=== PATIENT | female | born 1995 | race Caucasian/White ===

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

== ENCOUNTER 2017-11-12 23:05 | Emergency (ER) | payer BC ==
[2017-11-12 23:20] VITALS: BP 127/69; PULSE 80; RESP 20; TEMP 98.1
--- NOTE | 2017-11-13 00:02 | ED ---
Head Injury HPI - General Chief complaint: Head Injury Stated complaint: Poss concussion Time Seen by Provider: 11/12/17 23:21 Source: patient, RN notes reviewed, old records reviewed Mode of arrival: ambulatory Limitations: no limitations - History of Present Illness Initial comments: This patient is a 22-year-old female chief complaint of a head injury. She reports that she hit her head on the mantle when she was walking and slipped. She reports she has a small bruise over the anterior aspect of her for head. Patient states that she did not lose consciousness. She didn't have any other symptoms at this time.Your porch is a mild headache at this time. She rates her pain 4 out of 10. She also states that she spelt somewhat dizzy afterward. No vomiitng. - Related Data Home Medications Medication Instructions Recorded Confirmed Unknown Control 1 tab PO DAILY 11/12/17 11/12/17 Allergies/Adverse reactions: Allergies Allergy/AdvReac Type Severity Reaction Status Date / Time ampicillin Allergy Anaphylaxis Verified 11/12/17 23:31 Penicillins Allergy Anaphylaxis Verified 11/12/17 23:31 Review of Systems ROS Statement: Those systems with pertinent positive or pertinent negative responses have been documented in the HPI. ROS Other: All systems not noted in ROS Statement are negative. Past Medical History Past Medical History: No Reported History History of Any Multi-Drug Resistant Organisms: None Reported Past Surgical History: No Surgical Hx Reported Past Psychological History: Anxiety Smoking Status: Never smoker Past Alcohol Use History: None Reported Past Drug Use History: None Reported General Exam - General Exam Comments Initial Comments: This patient is a well appearing 22 year old female, no distress. Limitations: no limitations General appearance: alert, in no apparent distress Head exam: Present: atraumatic, normocephalic, normal inspection, other (small contusion over left anterior forehead. ) Eye exam: Present: normal appearance, PERRL, EOMI. Absent: scleral icterus, conjunctival injection, periorbital swelling ENT exam: Present: normal exam, mucous membranes moist Neck exam: Present: normal inspection. Absent: tenderness, meningismus, lymphadenopathy Respiratory exam: Present: normal lung sounds bilaterally. Absent: respiratory distress, wheezes, rales, rhonchi, stridor Cardiovascular Exam: Present: regular rate, normal rhythm, normal heart sounds. Absent: systolic murmur, diastolic murmur, rubs, gallop, clicks GI/Abdominal exam: Present: soft, normal bowel sounds. Absent: distended, tenderness, guarding, rebound, rigid Extremities exam: Present: normal inspection, full ROM, normal capillary refill. Absent: tenderness, pedal edema, joint swelling, calf tenderness Back exam: Present: normal inspection Neurological exam: Present: alert, oriented X3, CN II-XII intact Psychiatric exam: Present: normal affect, normal mood Skin exam: Present: warm, dry, intact, normal color. Absent: rash Course Vital Signs 11/12/17 23:16 Temperature 98.1 F Pulse Rate 80 Respiratory 20 Rate Blood Pressure 127/69 O2 Sat by Pulse 100 Oximetry Medical Decision Making - Medical Decision Making This patient is a 22-year-old female chief complaint of a head injury. She reports that she hit her head on the mantle when she was walking and slipped. She reports she has a small bruise over the anterior aspect of her for head. Patient states that she did not lose consciousness. She didn't have any other symptoms at this time.Your porch is a mild headache at this time. She rates her pain 4 out of 10. Patient has small contusion. No neurological findings. The accident happened a few hours ago. Discussed risk and benefit of CT at this time. Discussed that her mechanism of injury is not concerning for traumatic head injury. Melecio agrees to avoid CT at this time. Discussed that she should be monitored after any head injury and return parameters discussed. Disposition Clinical Impression: Head injury Disposition: HOME SELF-CARE Condition: Good Instructions: Concussion (ED) Additional Instructions: Patient is to take motrin and Tylenol for pain. Patient should not be straining computer screens are being any loud places. Patient should follow-up with primary care provider. Needs to be monitored for the next day. Return to emergency department if any alarming signs or symptoms occur. Referrals: Horace Freitas III, MD [Primary Care Provider] - 1-2 days Time of Disposition: 00:04
== END 2017-11-13 00:26 | disposition home or self-care (01) ==
LOC: EC 23:05
DX: S09.90XA Unspecified injury of head, initial encounter (principal); R42 Dizziness and giddiness; Z79.3 Long term (current) use of hormonal contraceptives; Z88.0 Allergy status to penicillin; Z88.1 Allergy status to other antibiotic agents; W01.198A Fall on same level from slipping, tripping and stumbling with subsequent striking against other object, initial encounter; Y93.01 Activity, walking, marching and hiking; Y92.009 Unspecified place in unspecified non-institutional (private) residence as the place of occurrence of the external cause
CPT/HCPCS: 99283

== ENCOUNTER → 2017-11-28 | Outpatient (CLI) | payer BC ==
--- NOTE | 2017-11-28 15:42 | US ---
EXAMINATION TYPE: US pelvis complete transvag DATE OF EXAM: 11/28/2017 COMPARISON: NONE CLINICAL HISTORY: R10.2 Pelvic And Perineal Pain. TECHNIQUE: . Transabdominal sonographic images of the pelvis were acquired. Transvaginal sonographi c images were medically necessary to better assess the following anatomy: Ovaries and uterus Date of LMP: Unsure EXAM MEASUREMENTS: Uterus: 6.5 x 2.5 x 3.5 cm Endometrial Stripe: 0.7 cm Right Ovary: 3.0 x 2.1 x 1.8 cm Left Ovary: 2.2 x 2.0 x 1.5 cm 1. Uterus: Anteverted wnl 2. Endometrium: wnl 3. Right Ovary: Cystic area visualized measuring 1.4 x 1.3 x 1.3, probable follicle 4. Left Ovary: wnl Spectral, color and waveform doppler imaging shows good arterial and venous flow within the ovaries ; there is no evidence for ovarian torsion. 5. Bilateral Adnexa: wnl 6. Posterior cul-de-sac: wnl IMPRESSION: Right ovarian follicular cyst.
== END | disposition home or self-care (01) ==
LOC: RADUSWWP 14:52
PROVIDERS: ATTEND Family Medicine
DX: N83.201 Unspecified ovarian cyst, right side (principal)
CPT/HCPCS: 76830; 76856; 93975

== ENCOUNTER 2018-06-14 17:47 | Inpatient (IN) | payer BC ==
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
[2018-06-14 21:56] LABS: Appearance,Urine Cloudy (Clear); Bilirubin,Urine Negative (Negative); Blood,Urine Small (Negative); Color,Urine Yellow; Glucose,Urine (UA) Negative (Negative); Ketones,Urine Negative (Negative); Leukocyte Esterase,Urine Trace (Negative); Mucus,Urine Rare /hpf; Nitrite,Urine Negative (Negative); Protein,Urine Negative (Negative); RBC,Urine 10 /hpf (0-5); Specific Gravity,Urine 1.013 (1.001-1.035); Squamous Epithelial Cell,Urine 14 /hpf (0-4); Urobilinogen,Urine <2.0 mg/dL (<2.0); WBC,Urine 2 /hpf (0-5)
[2018-06-14 22:01] LABS: Amphetamine Screen,Urine Not Detected (NotDetected); Barbiturate Screen,Urine Not Detected (NotDetected); Benzodiazepines Screen,Urine Not Detected (NotDetected); Cocaine Screen,Urine Not Detected (NotDetected); Methadone Screen, Urine Not Detected (NotDetected); Opiate Screen,Urine Not Detected (NotDetected); Oxycodone Screen, Urine Not Detected (NotDetected); Phencyclidine Screen,Urine Not Detected (NotDetected); Tricyclic Antidepressant,Urine Not Detected (NotDetected); Urn Cannabinoid Scrn Not Detected (NotDetected)
[2018-06-14 22:48] LABS: Basophils # (A) 0.1 k/uL (0-0.2); Basophils % (A) 1 %; Eosinophils # (A) 0.1 k/uL (0-0.7); Eosinophils % (A) 1 %; HCT 38.6 % (34.0-46.0); HGB 12.6 gm/dL (11.4-16.0); Lymphocytes # (A) 1.9 k/uL (1.0-4.8); Lymphocytes % (A) 16 %; MCH 32.2 pg (25.0-35.0); MCHC 32.6 g/dL (31.0-37.0); MCV 98.9 fL (80.0-100.0); Mean Platelet Volume 6.9; Monocytes # (A) 0.8 k/uL (0-1.0); Monocytes % (A) 7 %; Neutrophils # (A) 8.2 k/uL (1.3-7.7); Neutrophils % (A) 73 %; Platelet Count 218 k/uL (150-450); RBC 3.91 m/uL (3.80-5.40); RDW 12.2 % (11.5-15.5); WBC 11.3 k/uL (3.8-10.6)
[2018-06-14 23:02] LABS: ALT 30 U/L (9-52); AST 22 U/L (14-36); Albumin 3.8 g/dL (3.5-5.0); Alkaline Phosphatase 73 U/L (38-126); Anion Gap 7 mmol/L; Blood Urea Nitrogen 13 mg/dL (7-17); Calcium 9.2 mg/dL (8.4-10.2); Carbon Dioxide 26 mmol/L (22-30); Chloride 105 mmol/L (98-107); Glucose 82 mg/dL (74-99); Potassium 4.4 mmol/L (3.5-5.1); Sodium 138 mmol/L (137-145); Total Bilirubin 0.4 mg/dL (0.2-1.3); Total Protein 6.7 g/dL (6.3-8.2)
[2018-06-15] MEDS ORDERED: MAG HYDROX/AL HYDROX/SIMETH 30 ML CUP PO PRN (16:41)
[2018-06-15] MEDS ORDERED: ACETAMINOPHEN TAB 325 MG TAB PO PRN (16:41)
[2018-06-15] MEDS ORDERED: LORazepam 1 MG TAB PO PRN (16:41)
[2018-06-15] MEDS ORDERED: MAGNESIUM HYDROXIDE 2,400 MG/10 ML CUP PO PRN (16:41)
[2018-06-15] MEDS ORDERED: ZIPRASIDONE 20 MG VIAL IM PRN (16:41)
[2018-06-15 17:15] VITALS: BMI 28.0
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
[2018-06-16 15:23] LABS: Hemoglobin A1C 4.1 % (4.0-6.0)
[2018-06-16 16:06] LABS: Basophils % (A) 0 %; Eosinophils # (A) 0.1 k/uL (0-0.7); Eosinophils % (A) 1 %; HCT 40.7 % (34.0-46.0); HGB 13.3 gm/dL (11.4-16.0); Lymphocytes # (A) 1.3 k/uL (1.0-4.8); Lymphocytes % (A) 16 %; MCH 32.2 pg (25.0-35.0); MCHC 32.8 g/dL (31.0-37.0); MCV 98.3 fL (80.0-100.0); Mean Platelet Volume 6.8; Monocytes # (A) 0.6 k/uL (0-1.0); Monocytes % (A) 7 %; Neutrophils # (A) 6.4 k/uL (1.3-7.7); Neutrophils % (A) 74 %; Platelet Count 257 k/uL (150-450); RBC 4.14 m/uL (3.80-5.40); WBC 8.6 k/uL (3.8-10.6)
[2018-06-16 16:44] LABS: Appearance,Urine Cloudy (Clear); Bacteria,Urine Rare /hpf; Bilirubin,Urine Negative (Negative); Blood,Urine Small (Negative); Color,Urine Yellow; Glucose,Urine (UA) Negative (Negative); Ketones,Urine Negative (Negative); Leukocyte Esterase,Urine Small (Negative); Mucus,Urine Rare /hpf; Nitrite,Urine Negative (Negative); Protein,Urine Negative (Negative); RBC,Urine 9 /hpf (0-5); Specific Gravity,Urine 1.017 (1.001-1.035); Squamous Epithelial Cell,Urine 10 /hpf (0-4); Urobilinogen,Urine <2.0 mg/dL (<2.0); WBC,Urine 7 /hpf (0-5)
[2018-06-17 04:13] VITALS: BP 95/52; PULSE 70; RESP 12; TEMP 98.2
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
== END 2018-06-18 12:56 | disposition home or self-care (01) | DRG 885 ==
LOC: EC 17:47 → 3MHU 06-15 16:39
PROVIDERS: ADMIT Psychiatry & Neurology Psychiatry; ATTEND Psychiatry & Neurology Psychiatry
DX: F33.9 Major depressive disorder, recurrent, unspecified (principal); R45.851 Suicidal ideations; F41.9 Anxiety disorder, unspecified; D72.829 Elevated white blood cell count, unspecified; Z88.1 Allergy status to other antibiotic agents; Z88.0 Allergy status to penicillin
CPT/HCPCS: 36415; 80053; 80061; 80306; 81001; 81025; 83036; 84443; 84702; 84703; 85025; 99285

== ENCOUNTER 2019-03-09 09:54 | Inpatient (IN) | payer BC ==
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
[2019-03-09 10:57] LABS: Appearance,Urine Cloudy (Clear); Bacteria,Urine Rare /hpf; Bilirubin,Urine Negative (Negative); Blood,Urine Small (Negative); Calcium Oxalate Crystals,Urine Few /hpf; Color,Urine Yellow; Glucose,Urine (UA) Negative (Negative); Hyaline Casts,Urine 15 /lpf (0-2); Ketones,Urine Negative (Negative); Leukocyte Esterase,Urine Large (Negative); Mucus,Urine Many /hpf; Nitrite,Urine Negative (Negative); Protein,Urine Trace (Negative); RBC,Urine 7 /hpf (0-5); Specific Gravity,Urine 1.025 (1.001-1.035); Squamous Epithelial Cell,Urine 4 /hpf (0-4); Urobilinogen,Urine <2.0 mg/dL (<2.0); WBC,Urine 118 /hpf (0-5)
[2019-03-09] MEDS ORDERED: CEPHALEXIN 500 MG CAP PO STA (11:02)
[2019-03-09 11:05] LABS: ALT 20 U/L (9-52); AST 23 U/L (14-36); African American GFR (CKD) >90 (>60 ml/min/1.73 sqM); Albumin 4.2 g/dL (3.5-5.0); Alkaline Phosphatase 94 U/L (38-126); Anion Gap 8 mmol/L; Blood Urea Nitrogen 16 mg/dL (7-17); Calcium 8.9 mg/dL (8.4-10.2); Carbon Dioxide 25 mmol/L (22-30); Chloride 106 mmol/L (98-107); Glucose 86 mg/dL (74-99); Potassium 4.1 mmol/L (3.5-5.1); Sodium 139 mmol/L (137-145); Total Bilirubin 0.5 mg/dL (0.2-1.3)
[2019-03-09 11:06] LABS: Basophils % (A) 0 %; Eosinophils # (A) 0.1 k/uL (0-0.7); Eosinophils % (A) 1 %; HCT 38.6 % (34.0-46.0); HGB 12.9 gm/dL (11.4-16.0); Lymphocytes # (A) 0.8 k/uL (1.0-4.8); Lymphocytes % (A) 6 %; MCH 31.3 pg (25.0-35.0); MCHC 33.3 g/dL (31.0-37.0); MCV 94.1 fL (80.0-100.0); Mean Platelet Volume 6.8; Monocytes # (A) 0.6 k/uL (0-1.0); Monocytes % (A) 5 %; Neutrophils # (A) 10.8 k/uL (1.3-7.7); Neutrophils % (A) 86 %; Platelet Count 234 k/uL (150-450); RBC 4.11 m/uL (3.80-5.40); RDW 12.4 % (11.5-15.5); WBC 12.5 k/uL (3.8-10.6)
[2019-03-09 11:07] LABS: Amphetamine Screen,Urine Detected (NotDetected); Barbiturate Screen,Urine Not Detected (NotDetected); Benzodiazepines Screen,Urine Not Detected (NotDetected); Cocaine Screen,Urine Not Detected (NotDetected); Methadone Screen, Urine Not Detected (NotDetected); Opiate Screen,Urine Not Detected (NotDetected); Oxycodone Screen, Urine Not Detected (NotDetected); Phencyclidine Screen,Urine Not Detected (NotDetected); Tricyclic Antidepressant,Urine Not Detected (NotDetected); Urn Cannabinoid Scrn Not Detected (NotDetected)
[2019-03-09] MEDS ORDERED: ZIPRASIDONE 20 MG VIAL IM PRN (15:20)
[2019-03-09] MEDS ORDERED: MAG HYDROX/AL HYDROX/SIMETH 30 ML CUP PO PRN (15:20)
[2019-03-09] MEDS ORDERED: LORazepam 1 MG TAB PO PRN (15:20)
[2019-03-09] MEDS ORDERED: MAGNESIUM HYDROXIDE 2,400 MG/10 ML CUP PO PRN (15:20)
[2019-03-09] MEDS ORDERED: ACETAMINOPHEN TAB 325 MG TAB PO PRN (15:20)
[2019-03-09] MEDS ORDERED: LORazepam 2 MG/ML INJ IM PRN (15:22)
--- NOTE | 2019-03-09 18:24 | P.MDCNMH ---
History of Present Illness H&P Date: 03/09/19 Chief Complaint: Possible suicidal ideation 24-year-old female with PMH of anxiety presents to the ED being brought in by police. Patient is requiring inpatient psychiatric admission for suicidal ideation. [facility] physicians has been consulted for medical management of this patient. As per ED report. LMP was 6-8 weeks ago with patient thinking that she was . Urine test was negative in the ED. Patient was seen and examined. No acute events overnight. Patient appears tired at this time. Patient has no complaints. She denies any headaches, lower extremity edema, nausea, vomiting, fever, cough, chest pain, shortness of breath, palpitations, changes in urination or bowel habits. No changes in appetite or weight. She denies any dizziness, numbness/weakness/tingling of the extremities. Review of Systems Pertinent positives and negatives as discussed in HPI, a complete review of systems was performed and all other systems are negative. Past Medical History Past Medical History: No Reported History History of Any Multi-Drug Resistant Organisms: None Reported Past Surgical History: Tonsillectomy Past Anesthesia/Blood Transfusion Reactions: No Reported Reaction Past Psychological History: Anxiety Smoking Status: Never smoker Past Alcohol Use History: Occasional Past Drug Use History: None Reported - Past Family History Mother Additional Family Medical History / Comment(s): heart condition unsure of what type. Father Family Medical History: CVA/TIA Medications and Allergies Home Medications Medication Instructions Recorded Confirmed Type No Known Home Medications 06/14/18 03/09/19 History Allergies Allergy/AdvReac Type Severity Reaction Status Date / Time ampicillin Allergy Anaphylaxis Verified 03/09/19 16:09 Penicillins Allergy Anaphylaxis Verified 03/09/19 16:09 Physical Exam Vitals: Vital Signs Temp Pulse Pulse Resp BP BP Pulse Ox 03/09/19 15:57 98.0 F 105 H 16 126/84 03/09/19 15:55 98.0 F 105 H 16 126/84 03/09/19 11:47 99 03/09/19 10:21 98.2 F 97 16 113/81 94 L Intake and Output 03/09/19 03/09/19 03/09/19 06:59 14:59 22:59 Other: Weight 63.503 kg General: [non toxic], [no distress], [appears at stated age] Derm: [warm], [dry] Head: [atraumatic], [normocephalic], [symmetric] Eyes: [EOMI], [no lid lag], [anicteric sclera] Mouth: [no lip lesion], [mucus membranes moist] Cardiovascular: [S1S2 reg], [no murmur], [positive posterior tibial pulse bilateral], Lungs: [CTA bilateral], [no rhonchi, no rales] , [no accessory muscle use] Abdominal: [soft], [ nontender to palpation], [no guarding], [no appreciable organomegaly] Ext: [no gross muscle atrophy], [no edema], [no contractures] Neuro: [ CN II-XI grossly intact], [no focal neuro deficits] Psych: [Alert], [oriented], [appropriate affect] Cranial Nerve Examination - Cranial Nerves Cranial Nerve II- Optic: Intact Cranial Nerve III- Oculomotor: Intact Cranial Nerve IV- Trochlear: Intact Cranial Nerve V- Trigeminal: Intact Cranial Nerve - Abducens: Intact Cranial Nerve VII- Facial: Intact Cranial Nerve VIII- Auditory: Intact Cranial Nerve IX- Glossopharyngeal: Intact Cranial Nerve X- Vagus: Intact Cranial Nerve XI- Accessory: Intact Cranial Nerve XII- Hypoglossal: Intact Results CBC & Chem 7: 03/09/19 10:38 03/09/19 10:38 Labs: Abnormal Lab Results - Last 24 Hours (Table) 03/09/19 03/09/19 Range/Units 10:38 10:38 WBC 12.5 H (3.8-10.6) k/uL Neutrophils # 10.8 H (1.3-7.7) k/uL Lymphocytes # 0.8 L (1.0-4.8) k/uL Urine Appearance Cloudy H (Clear) Urine Protein Trace H (Negative) Urine Blood Small H (Negative) Ur Leukocyte Esterase Large H (Negative) Urine RBC 7 H (0-5) /hpf Urine WBC 118 H (0-5) /hpf Calcium Oxalate Crystal Few H (None) /hpf Urine Bacteria Rare H (None) /hpf Hyaline Casts 15 H (0-2) /lpf Urine Mucus Many H (None) /hpf Ur Amphetamines Screen Detected H (NotDetected) U Methamphetamines Scrn Detected H (NotDetected) Assessment and Plan Assessment: Assessment and Plan Methamphetamine use Asymptomatic bacteriuria Suicidal ideation UDS positive for methamphetamines. Vital signs currently stable. Plans: Ativan as needed for agitation. Urinalysis positive for leukocyte esterase. Patient has mild leukocytosis of 12.5 by afebrile. Plans: We do not treat asymptomatic bacteriuria with antibiotics. DC Keflex. Plans: Management as per psychiatry. Thank you for involving us in the care of this patient. Please call with any additional questions or concerns.
[2019-03-09] MEDS ORDERED: CEPHALEXIN 500 MG CAP PO SCH (21:00)
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
[2019-03-10] MEDS: FLUoxetine HCL 20 MG CAP PO SCH (11:35)
[2019-03-11] MEDS: FLUoxetine HCL 20 MG CAP PO SCH (08:59)
--- NOTE | 2019-03-11 09:34 | P.PN ---
Progress Note - Text Interval history: The patient is found in her room she follows me to an interview room. She indicates that she feels safe here mood is still stressed she feels down. She was able to sleep last night staff reported she slept 7 hours. Appetite stable. She reports that she was too tired to attend groups yesterday but plans to attend today. Her father did visit. She states that it is more likely that she will stay with her parents upon discharge. Social work was able to speak with the patient's father as well those notes were reviewed. The patient continues to not wish to participate in inpatient chemical dependency treatment. She has no questions or concerns related to the Prozac. Mental status exam: The patient is alert she's restroom clothing hygiene is adequate she has a disheveled appearance. She reports her mood is stressed she is still sad and somewhat overwhelmed. She feels safe in the hospital in terms of suicidal thoughts. She reports no homicidal ideation. She is endorsing no auditory or visual hallucinations or any specific delusions. Insight and judgment limited. She demonstrates no verbal or physical aggressiveness. She is not particularly engaged in the session but overall is cooperative. She has little spontaneous speech and provides brief answers to questions asked. Affect is bland. She does continue to frequently change position while seated in her chair and moves her hair from side to side. Plan: The patient's will continue on the Prozac we will consider titrating the dose. She is encouraged to participate fully in the milieu starting this morning. Vital signs reviewed. We will continue to monitor her for safety. She requires continued psychiatric hospitalization for further evaluation and treatment.
[2019-03-12] MEDS: FLUoxetine HCL 20 MG CAP PO SCH (07:36)
--- NOTE | 2019-03-12 10:00 | P.PN ---
Progress Note - Text Interval history: The patient is found in her room she follows me to an interview room. She reports having difficult conversations with her mother via phone. She states her mother laughs at her and she talks about what effort she will make to finish school maintain sobriety etc. She consistently find herself more aligned with her father. The patient states that she does continue to grieve the relationship with her former boyfriend. We spent some time discussing her substance use. She states that she is able to simply quit using all substances and does not need inpatient chemical dependency treatment. We reviewed her psychotropic medication. We also discussed coping skills she might employ when she returns home as she is anticipating it will be very difficult residing with her mother. Mental status exam: The patient is alert she presents with adequate hygiene grooming stressor own clothing. Speech is fluent spontaneous nonpressured. She reports a sad mood she is dysphoric in terms of affect she is tearful throughout the session. She reports some hopeless thoughts and that it will be difficult for her to reside with her parents. She continues to grieve the terminate a relationship with her former boyfriend as noted. She is reporting no homicidal ideation. She is endorsing no auditory or visual hallucinations or any specific delusions. There is no observed evidence of psychosis. Insight and judgment limited. She is oriented to person place and date. Plan: The patient will continue on the Prozac as written. We will continue to work on coping skill development. We will continue to address her recent history of substance use. She is instructed she needs to fully engage in the milieu. We will monitor her for safety. She requires continued psychiatric hospitalization due to her depressed mood dysphoric affect and continued hopelessness thinking. We will consider discharge sometime early next week. Her family will be involved in a support meeting and discharge planning. Vital signs reviewed.
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
[2019-03-13] MEDS: FLUoxetine HCL 20 MG CAP PO SCH (07:48)
[2019-03-13 10:55] LABS: Appearance,Urine Clear (Clear); Bilirubin,Urine Negative (Negative); Blood,Urine Small (Negative); Color,Urine Light Yellow; Glucose,Urine (UA) Negative (Negative); Ketones,Urine Negative (Negative); Leukocyte Esterase,Urine Moderate (Negative); Nitrite,Urine Negative (Negative); PH, Urine 6.5 (5.0-8.0); Protein,Urine Negative (Negative); RBC,Urine 1 /hpf (0-5); Specific Gravity,Urine 1.004 (1.001-1.035); Squamous Epithelial Cell,Urine <1 /hpf (0-4); Urobilinogen,Urine <2.0 mg/dL (<2.0)
--- NOTE | 2019-03-13 12:01 | P.PN ---
Progress Note - Text Progress Note Date: 03/13/19 Interval History: Patient is a 24-year-old female being seen in coverage over the weekend and she reports that she is feeling less hopeless and has a more positive outlook. She states she was a little restless last night after a phone call with her father which went well but her mother was in the background are calling her names and yelling which she states was upsetting. Patient states that she reports still having headaches, her crying spells are much less frequent and she reports no suicidal ideation. She states that she attends the therapy group but has not been attending the activity groups because she feels overwhelmed. Mental Status: Appearance/Attitude: Patient is appropriately dressed, made eye contact and was cooperative Behavior: Patient did not display any psychomotor agitation or retardation Speech/Language: Patient's speech was spontaneous of normal volume and rhythm and she was coherent Thought Process: Patient was goal-directed there is no evidence of loose association or flight of ideas Thought Content: Patient denied any auditory or visual hallucinations no delusions or paranoid ideation were elicited. Patient states that she is feeling less hopeless, has a more positive outlook and is feeling less depressed. She reports continuing to have headaches which she thinks are related to stress. She states she is no longer having any crying spells. She states that she spends about half of the time in her room either reading or writing. She reports attending therapy group but feels overwhelmed in the activity groups. She states that she slept last evening but it was more restless due to an upsetting phone call where her mother was in the background yelling and calling her names while she was speaking with her father. She states that conversation with her father went well. She is eating. Suicidal/Homicidal Ideation: Patient denies any current suicidal or homicidal ideation Sensorium/Cognition: Patient is alert and oriented to person, place, and time and her recent and remote memory are grossly intact Mood/Affect: Patient's mood is depressed, her affect slightly blunted, patient became tearful at times during the interview Insight/Judgment: Patient's insight and judgment are fair Assessment: Patient reports that she feels more positive and her outlook and less hopeless, she states that she is sleeping fairly well and eating okay. She reports no crying spells currently and no suicidal thoughts. Patient states she attends therapy group but feels overwhelmed and activity groups and tries to attend one each afternoon. She states she spends the rest of her time in the room reading or writing. I reviewed the patient's brain CT with her which showed no acute process. Patient continues to report headaches which she thinks are secondary to stress. Plan: Patient will continue on Prozac 20 mg daily, she was encouraged to continu e to try to attend groups and activities. Patient continues to require hospitalization to further stabilize her mood.
[2019-03-14] MEDS: FLUoxetine HCL 20 MG CAP PO SCH (08:55)
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
[2019-03-15] MEDS: FLUoxetine HCL 20 MG CAP PO SCH (08:32)
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
[2019-03-15] MEDS ORDERED: SULFAMETHOX-TMP 800-160MG 1 EACH TAB PO SCH (21:00)
[2019-03-16 06:27] VITALS: BP 107/56; PULSE 69; RESP 14; TEMP 97.7
[2019-03-16] MEDS: FLUoxetine HCL 20 MG CAP PO SCH (07:52)
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
== END 2019-03-16 11:50 | disposition home or self-care (01) | DRG 885 ==
LOC: EC 09:54 → 3MHU 15:05
PROVIDERS: ADMIT Psychiatry & Neurology Psychiatry; ATTEND Psychiatry & Neurology Psychiatry
DX: F33.2 Major depressive disorder, recurrent severe without psychotic features (principal); R45.851 Suicidal ideations; F41.9 Anxiety disorder, unspecified; F14.10 Cocaine abuse, uncomplicated; Z79.899 Other long term (current) drug therapy
CPT/HCPCS: 36415; 70450; 80053; 80306; 81001; 81025; 82075; 83036; 84443; 85025; 87086; 99285

== ENCOUNTER 2019-03-27 07:19 | Emergency (ER) | payer BC ==
[2019-03-27 07:29] VITALS: TEMP 97.5
[2019-03-27] MEDS ORDERED: SODIUM CHLORIDE 0.9% 1,000 ML IV STA (07:38)
[2019-03-27] MEDS ORDERED: KETOROLAC 30 MG/ML 1 ML VIAL IVP STA ×2 (07:38→09:34)
--- NOTE | 2019-03-27 07:43 | ED ---
Back Pain HPI - General Chief Complaint: Back Pain/Injury Stated Complaint: rt sided back pain Time Seen by Provider: 03/27/19 07:30 Source: patient, family, RN notes reviewed - History of Present Illness Initial Comments: This a 22-year-old female history kidney stones who states she had the onset earlier this morning of severe right-sided flank pain with urinary frequency. States the pain is 10/10 severity sharp in nature similar to her previous kidney stones. No fevers or sweats she has had some chills. Last menstrual period was on the third of this month. No other modifying factors at this time. No other symptoms at this time. MD Complaint: back pain - Related Data Previous Rx's Medication Instructions Recorded FLUoxetine HCL [PROzac] 20 mg PO DAILY #30 cap 03/16/19 Ibuprofen 800 mg PO Q6HR PRN #20 tablet 03/27/19 Tamsulosin [Flomax] 0.4 mg PO DAILY #5 cap 03/27/19 Allergies Allergy/AdvReac Type Severity Reaction Status Date / Time ampicillin Allergy Anaphylaxis Verified 03/27/19 08:57 Penicillins Allergy Anaphylaxis Verified 03/27/19 08:57 sulfamethoxazole AdvReac Nausea & Verified 03/27/19 08:57 [From Bactrim] Vomiting trimethoprim [From Bactrim] AdvReac Nausea & Verified 03/27/19 08:57 Vomiting Review of Systems ROS Statement: Those systems with pertinent positive or pertinent negative responses have been documented in the HPI. ROS Other: All systems not noted in ROS Statement are negative. Past Medical History Past Medical History: No Reported History History of Any Multi-Drug Resistant Organisms: None Reported Past Surgical History: Tonsillectomy Past Anesthesia/Blood Transfusion Reactions: No Reported Reaction Past Psychological History: Anxiety Smoking Status: Never smoker Past Alcohol Use History: Occasional Past Drug Use History: None Reported - Past Family History Mother Additional Family Medical History / Comment(s): heart condition unsure of what type. Father Family Medical History: CVA/TIA General Exam - General Exam Comments Initial Comments: This is a well-developed well-nourished awake alert oriented 3 female General appearance: alert, anxious, in distress Head exam: Present: atraumatic, normocephalic, normal inspection Eye exam: Present: normal appearance, PERRL, EOMI. Absent: scleral icterus, conjunctival injection, periorbital swelling ENT exam: Present: normal exam, mucous membranes moist Neck exam: Present: normal inspection. Absent: tenderness, meningismus, lymphadenopathy Respiratory exam: Present: normal lung sounds bilaterally. Absent: respiratory distress, wheezes, rales, rhonchi, stridor Cardiovascular Exam: Present: regular rate, normal rhythm, normal heart sounds. Absent: systolic murmur, diastolic murmur, rubs, gallop, clicks GI/Abdominal exam: Present: soft, tenderness (Very mild flank tenderness palpation no guarding or rebound), normal bowel sounds. Absent: distended, guarding, rebound, rigid, bruit, pulsatile mass Rectal exam: Present: deferred Extremities exam: Present: normal inspection, full ROM, normal capillary refill. Absent: tenderness, pedal edema, joint swelling, calf tenderness Back exam: Present: normal inspection, full ROM, CVA tenderness (R) Neurological exam: Present: alert, oriented X3, CN II-XII intact Psychiatric exam: Present: normal affect, normal mood Skin exam: Present: warm, dry, intact, normal color. Absent: rash Course Vital Signs 03/27/19 07:26 Temperature 97.5 F L Pulse Rate 83 Respiratory 20 Rate Blood Pressure 118/77 O2 Sat by Pulse 97 Oximetry Medical Decision Making - Medical Decision Making Patient is feeling improved at this time she'll some pain the presentation is consistent with a kidney stone she does demonstrate hematuria. After discussion with her and her mother she will be discharged on appropriate medication with follow-up with her doctor and she is return if needed - Lab Data Result diagrams: 03/27/19 08:00 03/27/19 08:00 Lab Results 03/27/19 03/27/19 03/27/19 Range/Units 07:55 07:55 08:00 WBC 8.2 (3.8-10.6) k/uL RBC 4.02 (3.80-5.40) m/uL Hgb 12.7 (11.4-16.0) gm/dL Hct 39.0 (34.0-46.0) % MCV 97.0 (80.0-100.0) fL MCH 31.6 (25.0-35.0) pg MCHC 32.6 (31.0-37.0) g/dL RDW 12.9 (11.5-15.5) % Plt Count 221 (150-450) k/uL Neutrophils % 62 % Lymphocytes % 23 % Monocytes % 8 % Eosinophils % 4 % Basophils % 1 % Neutrophils # 5.0 (1.3-7.7) k/uL Lymphocytes # 1.9 (1.0-4.8) k/uL Monocytes # 0.6 (0-1.0) k/uL Eosinophils # 0.3 (0-0.7) k/uL Basophils # 0.1 (0-0.2) k/uL Sodium (137-145) mmol/L Potassium (3.5-5.1) mmol/L Chloride (98-107) mmol/L Carbon Dioxide (22-30) mmol/L Anion Gap mmol/L BUN (7-17) mg/dL Creatinine (0.52-1.04) mg/dL Est GFR (CKD-EPI)AfAm (>60 ml/min/1.73 sqM) Est GFR (CKD-EPI)NonAf (>60 ml/min/1.73 sqM) Glucose (74-99) mg/dL Calcium (8.4-10.2) mg/dL Total Bilirubin (0.2-1.3) mg/dL AST (14-36) U/L ALT (9-52) U/L Alkaline Phosphatase (38-126) U/L Total Protein (6.3-8.2) g/dL Albumin (3.5-5.0) g/dL Urine Color Yellow Urine Appearance Cloudy H (Clear) Urine pH 5.5 (5.0-8.0) Ur Specific [place] 1.018 (1.001-1.035) Urine Protein Trace H (Negative) Urine Glucose (UA) Negative (Negative) Urine Ketones Negative (Negative) Urine Blood Moderate H (Negative) Urine Nitrite Negative (Negative) Urine Bilirubin Negative (Negative) Urine Urobilinogen <2.0 (<2.0) mg/dL Ur Leukocyte Esterase Moderate H (Negative) Urine RBC 84 H (0-5) /hpf Urine WBC 32 H (0-5) /hpf Ur Squamous Epith Cells 2 (0-4) /hpf Calcium Oxalate Crystal Few H (None) /hpf Urine Bacteria Occasional H (None) /hpf Urine Mucus Few H (None) /hpf Urine HCG, Qual Not Detected (Not Detectd) 03/27/19 Range/Units 08:00 WBC (3.8-10.6) k/uL RBC (3.80-5.40) m/uL Hgb (11.4-16.0) gm/dL Hct (34.0-46.0) % MCV (80.0-100.0) fL MCH (25.0-35.0) pg MCHC (31.0-37.0) g/dL RDW (11.5-15.5) % Plt Count (150-450) k/uL Neutrophils % % Lymphocytes % % Monocytes % % Eosinophils % % Basophils % % Neutrophils # (1.3-7.7) k/uL Lymphocytes # (1.0-4.8) k/uL Monocytes # (0-1.0) k/uL Eosinophils # (0-0.7) k/uL Basophils # (0-0.2) k/uL Sodium 139 (137-145) mmol/L Potassium 4.4 (3.5-5.1) mmol/L Chloride 107 (98-107) mmol/L Carbon Dioxide 25 (22-30) mmol/L Anion Gap 7 mmol/L BUN 21 H (7-17) mg/dL Creatinine 0.80 (0.52-1.04) mg/dL Est GFR (CKD-EPI)AfAm >90 (>60 ml/min/1.73 sqM) Est GFR (CKD-EPI)NonAf >90 (>60 ml/min/1.73 sqM) Glucose 79 (74-99) mg/dL Calcium 8.9 (8.4-10.2) mg/dL Total Bilirubin 0.4 (0.2-1.3) mg/dL AST 17 (14-36) U/L ALT 23 (9-52) U/L Alkaline Phosphatase 70 (38-126) U/L Total Protein 6.6 (6.3-8.2) g/dL Albumin 4.0 (3.5-5.0) g/dL Urine Color Urine Appearance (Clear) Urine pH (5.0-8.0) Ur Specific [place] (1.001-1.035) Urine Protein (Negative) Urine Glucose (UA) (Negative) Urine Ketones (Negative) Urine Blood (Negative) Urine Nitrite (Negative) Urine Bilirubin (Negative) Urine Urobilinogen (<2.0) mg/dL Ur Leukocyte Esterase (Negative) Urine RBC (0-5) /hpf Urine WBC (0-5) /hpf Ur Squamous Epith Cells (0-4) /hpf Calcium Oxalate Crystal (None) /hpf Urine Bacteria (None) /hpf Urine Mucus (None) /hpf Urine HCG, Qual (Not Detectd) - Radiology Data Radiology results: report reviewed (I did review the imaging and report evidence of a 3 mm calcification phleboliths versus ureterolithiasis), image reviewed Disposition Clinical Impression: Kidney stone on right side, Hematuria, Renal colic on right side Disposition: HOME SELF-CARE Condition: Good Instructions (If sedation given, give patient instructions): Kidney Stones (ED), Flank Pain (ED), How to Strain Your Urine (ED), Renal Colic (ED) Prescriptions: Tamsulosin [Flomax] 0.4 mg PO DAILY #5 cap Ibuprofen 800 mg PO Q6HR PRN #20 tablet PRN Reason: Pain Is patient prescribed a controlled substance at d/c from ED?: No Referrals: None,Stated [Primary Care Provider] - 1-2 days
[2019-03-27 08:29] LABS: Appearance,Urine Cloudy (Clear); Bacteria,Urine Occasional /hpf; Bilirubin,Urine Negative (Negative); Blood,Urine Moderate (Negative); Calcium Oxalate Crystals,Urine Few /hpf; Color,Urine Yellow; Glucose,Urine (UA) Negative (Negative); Ketones,Urine Negative (Negative); Leukocyte Esterase,Urine Moderate (Negative); Mucus,Urine Few /hpf; Nitrite,Urine Negative (Negative); PH, Urine 5.5 (5.0-8.0); Protein,Urine Trace (Negative); RBC,Urine 84 /hpf (0-5); Specific Gravity,Urine 1.018 (1.001-1.035); Squamous Epithelial Cell,Urine 2 /hpf (0-4); Urobilinogen,Urine <2.0 mg/dL (<2.0)
[2019-03-27 08:43] LABS: Basophils # (A) 0.1 k/uL (0-0.2); Basophils % (A) 1 %; Eosinophils # (A) 0.3 k/uL (0-0.7); Eosinophils % (A) 4 %; HGB 12.7 gm/dL (11.4-16.0); Lymphocytes # (A) 1.9 k/uL (1.0-4.8); Lymphocytes % (A) 23 %; MCH 31.6 pg (25.0-35.0); MCHC 32.6 g/dL (31.0-37.0); Mean Platelet Volume 7.6; Monocytes # (A) 0.6 k/uL (0-1.0); Monocytes % (A) 8 %; Neutrophils % (A) 62 %; Platelet Count 221 k/uL (150-450); RBC 4.02 m/uL (3.80-5.40); RDW 12.9 % (11.5-15.5); WBC 8.2 k/uL (3.8-10.6)
[2019-03-27 09:06] LABS: ALT 23 U/L (9-52); AST 17 U/L (14-36); African American GFR (CKD) >90 (>60 ml/min/1.73 sqM); Alkaline Phosphatase 70 U/L (38-126); Anion Gap 7 mmol/L; Blood Urea Nitrogen 21 mg/dL (7-17); Calcium 8.9 mg/dL (8.4-10.2); Carbon Dioxide 25 mmol/L (22-30); Chloride 107 mmol/L (98-107); Glucose 79 mg/dL (74-99); Potassium 4.4 mmol/L (3.5-5.1); Sodium 139 mmol/L (137-145); Total Bilirubin 0.4 mg/dL (0.2-1.3); Total Protein 6.6 g/dL (6.3-8.2)
--- NOTE | 2019-03-27 09:20 | XR ---
EXAMINATION TYPE: XR abdomen 1V DATE OF EXAM: 03/27/2019 9:12 AM CLINICAL HISTORY: Right-sided flank pain with urinary urgency, history of kidney stones. TECHNIQUE: 3 Upright KUB images of the abdomen are obtained. COMPARISON: None. FINDINGS: Scattered gas is seen in non-distended stomach and small bowel loops. Gas and fecal materia l is seen in non-distended colon. There is 3 mm round density right pelvis favoring phlebolith versus distal calculus. Metallic umbilical abdomen incidentally noted. No pneumoperitoneum. Lung bases are clear. IMPRESSION: A 3 mm right pelvic rounded calcification favors phlebolith over distal ureter calculus.
[2019-03-27] MEDS ORDERED: TAMSULOSIN 0.4 MG CAP.ER.24H PO STA (09:35)
[2019-03-27 10:10] VITALS: BP 121/78; PULSE 80; RESP 18
== END 2019-03-27 10:10 | disposition home or self-care (01) ==
LOC: EC 07:19
DX: N20.0 Calculus of kidney (principal); N23 Unspecified renal colic; Z88.0 Allergy status to penicillin; Z88.1 Allergy status to other antibiotic agents; Z88.2 Allergy status to sulfonamides
CPT/HCPCS: 99284; 96374; 96375; 96361 ×2; 36415; 80053; 85025; 81001; 81025; 87086; 74018; J1885

== ENCOUNTER 2019-05-31 18:01 | Emergency (ER) | payer BC ==
[2019-05-31 20:03] LABS: Appearance,Urine Cloudy (Clear); Bilirubin,Urine Negative (Negative); Blood,Urine Small (Negative); Color,Urine Yellow; Glucose,Urine (UA) Negative (Negative); Ketones,Urine 2+ (Negative); Leukocyte Esterase,Urine Moderate (Negative); Mucus,Urine Many /hpf; Nitrite,Urine Negative (Negative); Protein,Urine 1+ (Negative); RBC,Urine 7 /hpf (0-5); Specific Gravity,Urine 1.026 (1.001-1.035); Squamous Epithelial Cell,Urine 7 /hpf (0-4)
--- NOTE | 2019-05-31 20:11 | ED ---
Skin/Abscess/FB HPI - General Chief complaint: Skin/Abscess/Foreign Body Stated complaint: Rash Time Seen by Provider: 05/31/19 18:48 Source: patient Mode of arrival: ambulatory Limitations: no limitations - History of Present Illness Initial comments: Patient is a 24-year-old female presenting to the emergency Department with complaints of a rash on her left foot. Patient also has concerns that she could have HIV. Patient states she noticed redness on her left foot that started today. Patient states she was with her boyfriend the ER 2 days ago and he got tested for HIV and now she thinks she might have it. Patient admits to being an IV drug user. Patient denies any fever, chills, nausea, vomiting, vaginal complaints. Patient states she does have some lower abdominal pressure. Patient has not tried anything for the redness in her left foot. Patient has no other complaints at this time. Upon arrival to ER, vital signs are stable. - Related Data Previous Rx's Medication Instructions Recorded FLUoxetine HCL [PROzac] 20 mg PO DAILY #30 cap 03/16/19 Ibuprofen 800 mg PO Q6HR PRN #20 tablet 03/27/19 Tamsulosin [Flomax] 0.4 mg PO DAILY #5 cap 03/27/19 Nitrofurantoin Monohyd/M-Cryst 100 mg PO Q12HR 5 Days #10 cap 05/31/19 [Macrobid] Allergies Allergy/AdvReac Type Severity Reaction Status Date / Time ampicillin Allergy Anaphylaxis Verified 05/31/19 18:14 Penicillins Allergy Anaphylaxis Verified 05/31/19 18:14 sulfamethoxazole AdvReac Nausea & Verified 05/31/19 18:14 [From Bactrim] Vomiting trimethoprim [From Bactrim] AdvReac Nausea & Verified 05/31/19 18:14 Vomiting Review of Systems ROS Statement: Those systems with pertinent positive or pertinent negative responses have been documented in the HPI. ROS Other: All systems not noted in ROS Statement are negative. Past Medical History Past Medical History: No Reported History History of Any Multi-Drug Resistant Organisms: None Reported Past Surgical History: Tonsillectomy Past Anesthesia/Blood Transfusion Reactions: No Reported Reaction Past Psychological History: Anxiety Smoking Status: Never smoker Past Alcohol Use History: Occasional Past Drug Use History: Marijuana - Past Family History Mother Additional Family Medical History / Comment(s): heart condition unsure of what type. Father Family Medical History: CVA/TIA General Exam - General Exam Comments Initial Comments: GENERAL: Well-appearing, well-nourished, seems anxious. HEAD: Atraumatic, normocephalic. EYES: Pupils equal round and reactive to light, extraocular movements intact, sclera anicteric, conjunctiva are normal. ENT: TMs normal, nares patent, oropharynx clear without exudates. Moist mucous membranes. NECK: Normal range of motion, supple without lymphadenopathy or JVD. LUNGS: Breath sounds clear to auscultation bilaterally and equal. No wheezes rales or rhonchi. HEART: Regular rate and rhythm without murmurs, rubs or gallops. ABDOMEN: Soft, nontender, normoactive bowel sounds. No guarding, no rebound. No masses appreciated. : Deferred, declined. EXTREMITIES: Normal range of motion, no pitting or edema. No clubbing or cyanosis. NEUROLOGICAL: Cranial nerves II through XII grossly intact. Normal speech, normal gait. PSYCH: Normal mood, normal affect. SKIN: Warm, Dry, normal turgor. Patient has a mild area of erythema on the lateral part of her left ankle consistent with a bug bite. Patient has multiple skin lesions that appears to be from picking at the skin all over her body. No signs of cellulitis. Limitations: no limitations Course Vital Signs 05/31/19 05/31/19 18:11 20:18 Temperature 99.2 F 99.0 F Pulse Rate 110 H 98 Respiratory 18 20 Rate Blood Pressure 135/74 122/68 O2 Sat by Pulse 98 98 Oximetry Medical Decision Making - Medical Decision Making Patient is a 24-year-old female presenting with a rash on her left foot as well as concerns for HIV. Patient admits to being IV drug user. Patient denies fever, chills, nausea, vomiting, urinary complaints at this time. On exam patient has what appears to be a bug bite on her left foot as well as multiple skin lesions from picking at the skin throughout her body. No signs of cellulitis at this time. At request of patient, patient was tested for HIV. Results are pending at this time as well as trichomonas and syphilis testing. UA does reveal a moderate amount of WBCs. Patient will be treated for UTI with Macrobid. Patient is stable for discharge at this time. Return parameters were discussed with the patient she verbalized understanding. Patient is agreement with this plan of care. Case discussed with Dr. Nicholas. - Lab Data Lab Results 05/31/19 Range/Units 19:45 Urine Color Yellow Urine Appearance Cloudy H (Clear) Urine pH 6.0 (5.0-8.0) Ur Specific [place] 1.026 (1.001-1.035) Urine Protein 1+ H (Negative) Urine Glucose (UA) Negative (Negative) Urine Ketones 2+ H (Negative) Urine Blood Small H (Negative) Urine Nitrite Negative (Negative) Urine Bilirubin Negative (Negative) Urine Urobilinogen 3.0 (<2.0) mg/dL Ur Leukocyte Esterase Moderate H (Negative) Urine RBC 7 H (0-5) /hpf Urine WBC 58 H (0-5) /hpf Ur Squamous Epith Cells 7 H (0-4) /hpf Urine Mucus Many H (None) /hpf Disposition Clinical Impression: UTI (urinary tract infection), Bug bite Disposition: HOME SELF-CARE Condition: Stable Instructions (If sedation given, give patient instructions): Urinary Tract Infection in Women (ED) Additional Instructions: Please return to the Emergency Department if symptoms worsen or any other conc erns. Take antibiotic as prescribed. Follow-up with PCP as needed. Prescriptions: Nitrofurantoin Monohyd/M-Cryst [Macrobid] 100 mg PO Q12HR 5 Days #10 cap Is patient prescribed a controlled substance at d/c from ED?: No Referrals: None,Stated [Primary Care Provider] - 1-2 days
[2019-05-31 20:20] VITALS: BP 122/68; PULSE 98; RESP 20; TEMP 99
[2019-06-01 04:06] LABS: HIV 1 AB Non-Reactive (Non-Reactive); HIV AB P24 Non-Reactive (Non-Reactive); HIV P24 AG Non-Reactive (Non-Reactive)
== END 2019-05-31 20:19 | disposition home or self-care (01) ==
LOC: EC 18:01
DX: S90.862A Insect bite (nonvenomous), left foot, initial encounter (principal); N39.0 Urinary tract infection, site not specified; Z88.0 Allergy status to penicillin; Z88.2 Allergy status to sulfonamides; W57.XXXA Bitten or stung by nonvenomous insect and other nonvenomous arthropods, initial encounter
CPT/HCPCS: 36415; 81001; 86780; 87086; 87390; 99283

== ENCOUNTER 2019-08-08 00:04 | Emergency (ER) | payer BC ==
[2019-08-08 00:11] VITALS: RESP 18; TEMP 98.3
[2019-08-08 01:07] LABS: Amphetamine Screen,Urine Detected (NotDetected); Barbiturate Screen,Urine Not Detected (NotDetected); Benzodiazepines Screen,Urine Not Detected (NotDetected); Cocaine Screen,Urine Not Detected (NotDetected); Methadone Screen, Urine Not Detected (NotDetected); Opiate Screen,Urine Not Detected (NotDetected); Oxycodone Screen, Urine Not Detected (NotDetected); Phencyclidine Screen,Urine Not Detected (NotDetected); Tricyclic Antidepressant,Urine Not Detected (NotDetected); Urn Cannabinoid Scrn Not Detected (NotDetected)
--- NOTE | 2019-08-08 02:28 | ED ---
Psych HPI - General Chief Complaint: Psychiatric Symptoms Stated Complaint: Mental Health Time Seen by Provider: 08/08/19 00:14 Source: police Mode of arrival: ambulatory - History of Present Illness Initial Comments: 24-year-old female patient presents to the emergency department accompanied by [facility] Department for psychiatric evaluation. Patient states that she was in a verbal argument with her significant other this evening. States that he has had some very hurtful things which made her last child states she wishes that she was . Patient states that she has no current suicidal ideation or plan. States that she did fall causing injury to her thigh. She does have some self-inflicted wounds to the volar aspect of her left forearm, states this occurred a few days ago. States that she does have history of major depressive disorder and does take Prozac. She does seek counseling outpatient. States she has been admitted for mental health in the past. Denies any recent illness or current physical symptoms. Patient denies any recent rash, fever, chills, shortness breath, chest pain, abdominal pain, nausea, vomiting, diarrhea, constipation, back pain, numbness, tingling, dizziness, weakness, hematuria, dysuria, urinary urgency, urinary frequency, headache, visual changes, or any other complaints. - Related Data Previous Rx's Medication Instructions Recorded FLUoxetine HCL [PROzac] 20 mg PO DAILY #30 cap 03/16/19 Ibuprofen 800 mg PO Q6HR PRN #20 tablet 03/27/19 Tamsulosin [Flomax] 0.4 mg PO DAILY #5 cap 03/27/19 Nitrofurantoin Monohyd/M-Cryst 100 mg PO Q12HR 5 Days #10 cap 05/31/19 [Macrobid] Allergies Allergy/AdvReac Type Severity Reaction Status Date / Time ampicillin Allergy Anaphylaxis Verified 08/08/19 00:11 Penicillins Allergy Anaphylaxis Verified 08/08/19 00:11 sulfamethoxazole AdvReac Nausea & Verified 08/08/19 00:11 [From Bactrim] Vomiting trimethoprim [From Bactrim] AdvReac Nausea & Verified 08/08/19 00:11 Vomiting Review of Systems ROS Statement: Those systems with pertinent positive or pertinent negative responses have been documented in the HPI. ROS Other: All systems not noted in ROS Statement are negative. Past Medical History Past Medical History: No Reported History History of Any Multi-Drug Resistant Organisms: None Reported Past Surgical History: Tonsillectomy Past Anesthesia/Blood Transfusion Reactions: No Reported Reaction Past Psychological History: Anxiety, Depression Smoking Status: Never smoker Past Alcohol Use History: Occasional Past Drug Use History: Marijuana - Past Family History Mother Additional Family Medical History / Comment(s): heart condition unsure of what type. Father Family Medical History: CVA/TIA General Exam Limitations: no limitations General appearance: alert, in no apparent distress, other (This is a well- developed, well-nourished adult male patient in no acute distress. Vital signs upon presentation are temperature 98.3F, pulse 62, respirations 18, blood pressure 129/81, pulse ox 97% on room air.) Eye exam: Present: normal appearance, PERRL, EOMI. Absent: scleral icterus, conjunctival injection, periorbital swelling ENT exam: Present: normal exam, normal oropharynx, mucous membranes moist Respiratory exam: Present: normal lung sounds bilaterally. Absent: respiratory distress, wheezes, rales, rhonchi, stridor Cardiovascular Exam: Present: regular rate, normal rhythm, normal heart sounds. Absent: systolic murmur, diastolic murmur, rubs, gallop, clicks GI/Abdominal exam: Present: soft, normal bowel sounds. Absent: distended, tenderness, guarding, rebound, rigid Extremities exam: Present: full ROM, normal capillary refill, other (Superficial lacerations noted to the volar left forearm. No active bleeding. These appear to be healing. No surrounding erythema or evidence of infection. Skin is otherwise pink, warm, dry. Cap refills less than 3 seconds. Radial pulses 2+ and equal bilaterally.). Absent: normal inspection, tenderness, pedal edema, joint swelling, calf tenderness Neurological exam: Present: alert, oriented X3, CN II-XII intact Psychiatric exam: Present: normal mood, depressed, anxious. Absent: normal affect, homicidal ideation, suicidal ideation Skin exam: Present: warm, dry, intact, normal color. Absent: rash Course Vital Signs 08/08/19 00:09 Temperature 98.3 F Pulse Rate 62 Respiratory 18 Rate Blood Pressure 129/81 O2 Sat by Pulse 97 Oximetry Medical Decision Making - Medical Decision Making 24-year-old female patient presents to the emergency department today for psychiatric evaluation. Patient states she is not suicidal nor homicidal. States she stated that she would rather be and it fit of anger after an ar gument with her significant other. Physical examination is unremarkable. She was seen and evaluated by emergency psychiatric services, they did develop a safety plan. Patient is safe to discharge home. She is instructed to follow her counselor as soon as possible. She is instructed follow with her primary care physician for recheck in 1-2 days. Return parameters discussed in detail. They verbalize understanding and agree with this plan. - Lab Data Lab Results 08/08/19 08/08/19 Range/Units 00:40 00:53 Urine HCG, Qual Not Detected (Not Detectd) Urine Opiates Screen Not Detected (NotDetected) Ur Oxycodone Screen Not Detected (NotDetected) Urine Methadone Screen Not Detected (NotDetected) Ur Propoxyphene Screen Not Detected (NotDetected) Ur Barbiturates Screen Not Detected (NotDetected) U Tricyclic Antidepress Not Detected (NotDetected) Ur Phencyclidine Scrn Not Detected (NotDetected) Ur Amphetamines Screen Detected H (NotDetected) U Methamphetamines Scrn Detected H (NotDetected) U Benzodiazepines Scrn Not Detected (NotDetected) Urine Cocaine Screen Not Detected (NotDetected) U Marijuana (THC) Screen Not Detected (NotDetected) Disposition Clinical Impression: Depression Disposition: HOME SELF-CARE Condition: Good Instructions (If sedation given, give patient instructions): Depression (ED), Help Prevent Suicide (ED) Additional Instructions: Follow up with your counselor as soon as possible. Follow up with your primary care physician for recheck in 1-2 days. Return to the emergency department immediately for any new, worsening, or concerning symptoms. Is patient prescribed a controlled substance at d/c from ED?: No Referrals: None,Stated [Primary Care Provider] - 1-2 days Time of Disposition: 03:45
[2019-08-08 04:22] VITALS: BP 119/68; PULSE 100
== END 2019-08-08 04:28 | disposition home or self-care (01) ==
LOC: EC 00:04
DX: F32.9 Major depressive disorder, single episode, unspecified (principal); S51.812A Laceration without foreign body of left forearm, initial encounter; S79.929A Unspecified injury of unspecified thigh, initial encounter; Z88.0 Allergy status to penicillin; Z88.2 Allergy status to sulfonamides; Z79.899 Other long term (current) drug therapy; X78.0XXA Intentional self-harm by sharp glass, initial encounter
CPT/HCPCS: 80306; 81025; 82075; 99284

== ENCOUNTER 2020-06-02 16:22 | Emergency (ER) | payer BC ==
[2020-06-02 16:32] VITALS: TEMP 97.9
--- NOTE | 2020-06-02 17:01 | ED ---
General Adult HPI - General Chief complaint: Shortness of Breath Stated complaint: SOB, 23weeks preg Time Seen by Provider: 06/02/20 16:40 Source: patient Mode of arrival: ambulatory Limitations: no limitations - History of Present Illness Initial comments: Dictation was produced using [employer] dictation software. please excuse any grammatical, word or spelling errors. This patient was cared for during a federal and state declared state of emerge ncy secondary to Covid 19 Chief Complaint: 25-year-old female presents with concerns for shortness of breath. History of Present Illness: Patient is a 25-year-old female she has multiple A LLERGIES. She is here because she is worried about her shortness of breath. She states her symptoms began. Since she was at a different hospital and had anaphylaxis. She denies any chest pain. She states she's been kind of short of breath for several weeks now. She denies any chest pain. She denies any leg pain. No history of blood clots. Denies any history of asthma. He does not smoke she is allegedly 23 weeks . This is her second . Denies any shortness of breath with her first . Denies any fever, chills or night sweats. No coughing. The ROS documented in this emergency department record has been reviewed and confirmed by me. Those systems with pertinent positive or negative responses have been documented in the HPI. All other systems are other negative and/or noncontributory. PHYSICAL EXAM: General Impression: Alert and oriented x3, not in acute distress HEENT: Normocephalic atraumatic, extra-ocular movements intact, pupils equal and reactive to light bilaterally, mucous membranes moist. Cardiovascular: Heart regular rate and rhythm Chest: Able to complete full sentences, no retractions, no tachypnea, lungs clear to auscultation bilaterally, no wheezes rales or rhonchi Abdomen: abdomen soft, non-tender, non-distended, no organomegaly Musculoskeletal: Pulses present and equal in all extremities, no peripheral edema, no calf tenderness or popliteal tenderness or medial thigh tenderness Motor: no focal deficits noted Neurological: CN II-XII grossly intact, no focal motor or sensory deficits noted Skin: Intact with no visualized rashes Psych: Normal affect and mood ED course: 25-year-old female presents with concern for shortness of breath. Her vital signs are very stable. Vital signs upon arrival are within normal limits. Patient does not appear dyspneic. She does not have any signs or symptoms to suggest pulmonary embolus. Laboratory evaluation obtained. Leukocytosis of 19.3. This is likely physiologic for . Coag panel is unremarkable. Metabolic panel is negative. Brain natruretic peptide is negative. Chest x-ray is nonacute. Patient is ambulatory without any dyspnea. Ambulatory pulse ox is normal. Return parameters discussed. Patient is agreeable for discharge. EKG interpretation: Ventricular rate 85, normal sinus rhythm,. Interval 118, QRS 72, QTc 433. No HI prolongation, no QTC prolongation, no ST or T-wave changes noted. Overall, this EKG is unremarkable - Related Data Previous Rx's Medication Instructions Recorded FLUoxetine HCL [PROzac] 20 mg PO DAILY #30 cap 03/16/19 Ibuprofen 800 mg PO Q6HR PRN #20 tablet 03/27/19 Tamsulosin [Flomax] 0.4 mg PO DAILY #5 cap 03/27/19 Nitrofurantoin Monohyd/M-Cryst 100 mg PO Q12HR 5 Days #10 cap 05/31/19 [Macrobid] Allergies Allergy/AdvReac Type Severity Reaction Status Date / Time ampicillin Allergy Anaphylaxis Verified 06/02/20 16:30 Penicillins Allergy Anaphylaxis Verified 06/02/20 16:30 sulfamethoxazole AdvReac Nausea & Verified 06/02/20 16:30 [From Bactrim] Vomiting trimethoprim [From Bactrim] AdvReac Nausea & Verified 06/02/20 16:30 Vomiting Review of Systems ROS Statement: Those systems with pertinent positive or pertinent negative responses have been documented in the HPI. ROS Other: All systems not noted in ROS Statement are negative. Past Medical History Past Medical History: No Reported History History of Any Multi-Drug Resistant Organisms: None Reported Past Surgical History: Tonsillectomy Past Anesthesia/Blood Transfusion Reactions: No Reported Reaction Past Psychological History: Anxiety, Depression Smoking Status: Never smoker Past Alcohol Use History: None Reported - Past Family History Mother Additional Family Medical History / Comment(s): heart condition unsure of what type. Father Family Medical History: CVA/TIA General Exam Limitations: no limitations Course Vital Signs 06/02/20 06/02/20 06/02/20 16:30 17:01 17:58 Temperature 97.9 F Pulse Rate 86 87 Respiratory 16 20 Rate Blood Pressure 127/86 124/78 O2 Sat by Pulse 99 97 96 Oximetry Medical Decision Making - Lab Data Result diagrams: 06/02/20 16:58 06/02/20 16:58 Lab Results 06/02/20 06/02/20 06/02/20 Range/Units 16:58 16:58 16:58 WBC 19.3 H (3.8-10.6) k/uL RBC 3.95 (3.80-5.40) m/uL Hgb 12.4 (11.4-16.0) gm/dL Hct 38.2 (34.0-46.0) % MCV 96.9 (80.0-100.0) fL MCH 31.4 (25.0-35.0) pg MCHC 32.4 (31.0-37.0) g/dL RDW 13.6 (11.5-15.5) % Plt Count 265 (150-450) k/uL Neutrophils % 84 % Lymphocytes % 9 % Monocytes % 6 % Eosinophils % 1 % Basophils % 0 % Neutrophils # 16.2 H (1.3-7.7) k/uL Lymphocytes # 1.7 (1.0-4.8) k/uL Monocytes # 1.1 H (0-1.0) k/uL Eosinophils # 0.1 (0-0.7) k/uL Basophils # 0.0 (0-0.2) k/uL PT 9.3 (9.0-12.0) sec INR 0.9 (<1.2) APTT 23.2 (22.0-30.0) sec Sodium 134 L (137-145) mmol/L Potassium 4.1 (3.5-5.1) mmol/L Chloride 104 (98-107) mmol/L Carbon Dioxide 26 (22-30) mmol/L Anion Gap 4 mmol/L BUN 10 (7-17) mg/dL Creatinine 0.57 (0.52-1.04) mg/dL Est GFR (CKD-EPI)AfAm >90 (>60 ml/min/1.73 sqM) Est GFR (CKD-EPI)NonAf >90 (>60 ml/min/1.73 sqM) Glucose 95 (74-99) mg/dL Calcium 9.0 (8.4-10.2) mg/dL Troponin I (0.000-0.034) ng/mL NT-Pro-B Natriuret Pep pg/mL 06/02/20 06/02/20 Range/Units 16:58 16:58 WBC (3.8-10.6) k/uL RBC (3.80-5.40) m/uL Hgb (11.4-16.0) gm/dL Hct (34.0-46.0) % MCV (80.0-100.0) fL MCH (25.0-35.0) pg MCHC (31.0-37.0) g/dL RDW (11.5-15.5) % Plt Count (150-450) k/uL Neutrophils % % Lymphocytes % % Monocytes % % Eosinophils % % Basophils % % Neutrophils # (1.3-7.7) k/uL Lymphocytes # (1.0-4.8) k/uL Monocytes # (0-1.0) k/uL Eosinophils # (0-0.7) k/uL Basophils # (0-0.2) k/uL PT (9.0-12.0) sec INR (<1.2) APTT (22.0-30.0) sec Sodium (137-145) mmol/L Potassium (3.5-5.1) mmol/L Chloride (98-107) mmol/L Carbon Dioxide (22-30) mmol/L Anion Gap mmol/L BUN (7-17) mg/dL Creatinine (0.52-1.04) mg/dL Est GFR (CKD-EPI)AfAm (>60 ml/min/1.73 sqM) Est GFR (CKD-EPI)NonAf (>60 ml/min/1.73 sqM) Glucose (74-99) mg/dL Calcium (8.4-10.2) mg/dL Troponin I <0.012 (0.000-0.034) ng/mL NT-Pro-B Natriuret Pep 37 pg/mL Disposition Clinical Impression: Dyspnea Disposition: HOME SELF-CARE Condition: Good Instructions (If sedation given, give patient instructions): Dyspnea (ED) Is patient prescribed a controlled substance at d/c from ED?: No Referrals: None,Stated [Primary Care Provider] - 1-2 days Time of Disposition: 18:01
[2020-06-02 17:09] LABS: Basophils % (A) 0 %; Eosinophils # (A) 0.1 k/uL (0-0.7); Eosinophils % (A) 1 %; HCT 38.2 % (34.0-46.0); HGB 12.4 gm/dL (11.4-16.0); Lymphocytes # (A) 1.7 k/uL (1.0-4.8); Lymphocytes % (A) 9 %; MCH 31.4 pg (25.0-35.0); MCHC 32.4 g/dL (31.0-37.0); MCV 96.9 fL (80.0-100.0); Mean Platelet Volume 6.9; Monocytes # (A) 1.1 k/uL (0-1.0); Monocytes % (A) 6 %; Neutrophils # (A) 16.2 k/uL (1.3-7.7); Neutrophils % (A) 84 %; Platelet Count 265 k/uL (150-450); RBC 3.95 m/uL (3.80-5.40); RDW 13.6 % (11.5-15.5); WBC 19.3 k/uL (3.8-10.6)
[2020-06-02 17:17] LABS: INR 0.9 (<1.2); Partial Thromboplastin Time 23.2 sec (22.0-30.0); Prothrombin Time 9.3 sec (9.0-12.0)
[2020-06-02 17:22] LABS: African American GFR (CKD) >90 (>60 ml/min/1.73 sqM); Anion Gap 4 mmol/L; Blood Urea Nitrogen 10 mg/dL (7-17); Carbon Dioxide 26 mmol/L (22-30); Chloride 104 mmol/L (98-107); Glucose 95 mg/dL (74-99); Non-African American GFR(CKD) >90 (>60 ml/min/1.73 sqM); Potassium 4.1 mmol/L (3.5-5.1); Sodium 134 mmol/L (137-145)
--- NOTE | 2020-06-02 17:30 | XR ---
EXAMINATION TYPE: XR chest 2V DATE OF EXAM: 06/02/2020 COMPARISON: NONE HISTORY: Short of breath TECHNIQUE: FINDINGS: Heart and mediastinum are normal. Lungs are clear. Diaphragm is normal. Bony thorax appears normal. IMPRESSION: Normal chest
[2020-06-02 18:00] VITALS: BP 124/78; PULSE 87; RESP 20
== END 2020-06-02 18:09 | disposition home or self-care (01) ==
LOC: EC 16:22
DX: O99.89 Other specified diseases and conditions complicating pregnancy, childbirth and the puerperium (principal); R06.00 Dyspnea, unspecified; Z88.0 Allergy status to penicillin; Z88.2 Allergy status to sulfonamides; Z3A.23 23 weeks gestation of pregnancy
CPT/HCPCS: 36415; 71046; 80048; 83880; 84484; 85025; 85610; 85730; 93005; 99285

== ENCOUNTER 2020-09-26 09:56 | Inpatient (IN) | payer BC, OTHER ==
[2020-09-25 14:36] VITALS: BMI 37.8
[2020-09-26] MEDS ORDERED: CLINDAMYCIN 900 MG in DEXTROSE 5% IN WATER 50 ML IVPB ONE ×2 (10:28)
[2020-09-26] MEDS ORDERED: CITRIC ACID-SODIUM CITRATE 15 ML CUP PO ONE (10:28)
[2020-09-26 10:35] LABS: Basophils % (A) 0 %; Eosinophils # (A) 0.1 k/uL (0-0.7); Eosinophils % (A) 1 %; HCT 37.5 % (34.0-46.0); HGB 13.2 gm/dL (11.4-16.0); Lymphocytes # (A) 1.2 k/uL (1.0-4.8); Lymphocytes % (A) 10 %; MCH 32.8 pg (25.0-35.0); MCHC 35.3 g/dL (31.0-37.0); Mean Platelet Volume 7.6; Monocytes # (A) 0.9 k/uL (0-1.0); Monocytes % (A) 7 %; Neutrophils # (A) 10.1 k/uL (1.3-7.7); Neutrophils % (A) 81 %; Platelet Count 194 k/uL (150-450); RBC 4.03 m/uL (3.80-5.40); RDW 12.6 % (11.5-15.5); WBC 12.6 k/uL (3.8-10.6)
--- NOTE | 2020-09-26 10:37 | P.HPOB ---
History of Present Illness H&P Date: 09/26/20 Chief Complaint: IUP at 40 and 1/sevenths weeks, breech presentation This is a 25-year-old 1 para 0 at 40-0/7 weeks that presents to labor and delivery for planned primary secondary to breech presentation. Patient is a known patient of Dr. Barker, and was a transfer of care at 30 weeks.. Patient has been noted to be in the breech presentation. Overall care is been essentially uncomplicated. This morning she notes good movement denies contractions vaginal bleeding or loss of fluid. On bloodwork this patient has a blood type of O+, rubella status is unknown, RPR is nonreactive, B surface antigen is negative, HIV is negative she did receive the Tdap vaccination, group beta strep is negative on 08/30 and she declines the flu shot. Review of Systems Constitutional: Denies fatigue, Denies fever Ears, nose, mouth and throat: Denies headache Cardiovascular: Reports leg edema Respiratory: Denies dyspnea Gastrointestinal: Denies constipation, Denies diarrhea, Denies nausea, Denies vomiting Genitourinary: Reports Past Medical History Past Medical History: No Reported History Additional Past Medical History / Comment(s): hypoglycemia,hospitalized at 20 weeks for kidney infection History of Any Multi-Drug Resistant Organisms: None Reported Past Surgical History: Adenoidectomy, Tonsillectomy Past Anesthesia/Blood Transfusion Reactions: No Reported Reaction Additional Past Anesthesia/Blood Transfusion Reaction / Comment(s): no hx blood transfusion Smoking Status: Never smoker - Past Family History Mother Additional Family Medical History / Comment(s): heart condition unsure of what t ype. Father Family Medical History: Coronary Artery Disease (CAD), CVA/TIA Medications and Allergies Home Medications Medication Instructions Recorded Confirmed Type Acetaminophen Tab [Tylenol Tab] 500 mg PO Q6H PRN 09/25/20 09/26/20 History Pnv No.95/Ferrous Fum/Folic AC 1 each PO DAILY 09/25/20 09/26/20 History [ Multivitamin Tablet] Allergies Allergy/AdvReac Type Severity Reaction Status Date / Time ampicillin Allergy Anaphylaxis Verified 09/26/20 10:16 Cephalosporins Allergy Anaphylaxis Verified 09/26/20 10:16 Penicillins Allergy Anaphylaxis Verified 09/26/20 10:16 sulfamethoxazole AdvReac Nausea & Verified 09/26/20 10:16 [From Bactrim] Vomiting trimethoprim [From Bactrim] AdvReac Nausea & Verified 09/26/20 10:16 Vomiting Exam Osteopathic Statement: *. No significant issues noted on an osteopathic structural exam other than those noted in the History and Physical/Consult. 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 On ultrasound evaluation fetus is noted to be in the breech presentation. Assessment and Plan (1) Term Current Visit: Yes Status: Acute Code(s): Z34.90 - ENCNTR FOR SUPRVSN OF NORMAL , UNSP, UNSP TRIMESTER SNOMED Code(s): 51781531 (2) Breech extraction NOS-unspec Current Visit: Yes Status: Acute Code(s): O64.1XX0 - OBSTRUCTED LABOR DUE TO BREECH PRESENTATION, UNSP SNOMED Code(s): 612410971 Plan: This 25-year-old 1 para 0 at 40-0/7 weeks presents to labor and delivery for planned primary secondary to breech presentation. Surgery is reviewed with the patient and all questions are answered. We'll plan primary C- section secondary to malpresentation.
[2020-09-26] MEDS: LACTATED RINGERS 1,000 ML IV SCH ×2 (10:38→20:32)
[2020-09-26] MEDS ORDERED: GENTAMICIN 360 MG in SODIUM CHLORIDE 0.9% 100 ML IVPB ONE (10:45)
[2020-09-26] MEDS ORDERED: NALBUPHINE 10 MG/ML (1 ML AMP) ONE (11:53)
[2020-09-26] MEDS ORDERED: MORPHINE SULFATE (PF) 0.3 MG/0.3 ML SYR ONE (11:53)
[2020-09-26] MEDS ORDERED: ONDANSETRON 4 MG/2 ML VIAL ONE (11:53)
[2020-09-26] MEDS ORDERED: PHENYLEPHRINE 10 MG/ML VIAL ONE (11:53)
--- NOTE | 2020-09-26 12:49 | P.OP ---
Date of Procedure: 09/26/20 Preoperative Diagnosis: IUP at 40 and 0/sevenths weeks, breech presentation Postoperative Diagnosis: Same Procedure(s) Performed: Primary low transverse section Anesthesia: spinal Surgeon: Domitila Mccormick [employer] Jobs Trainer #1: Marilia Hyatt Estimated Blood Loss (ml): 450 IV fluids (ml): 1,300 Urine output (ml): 200 Pathology: none sent Condition: stable Disposition: observation Indications for Procedure: This 25-year-old 1 para 0 at 40-0/7 weeks with known breech presentation presented for primary secondary to malpresentation. Operative Findings: Normal uterus tubes and ovaries were appreciated during surgery, viable male delivered at 1213 and a clement breech presentation weight of 8 lbs. 2 oz. and Apgars of 9 and 10 at one and 5 minutes respectively. Description of Procedure: Patient was seen preoperatively and informed consent was obtained. Ultrasound confirmed breech presentation. Patient was taken back to the operating suite where spinal anesthesia was found be adequate by the anesthesia department. A Pfannenstiel skin incision was made the scalpel and carried through the underlying layer of fascia, the fascia was then incised in the midline. The fascial incision was then extended laterally. The superior aspect of the fascial incision was then grasped with Navin clamps, elevated and underlying rectus muscle was dissected off sharply. Attention then turned to the inferior aspect of the fascial incision which was grasped navin clamps, elevated and underlying rectus muscles dissected off sharply once again. The rectus muscles were then in the midline and the peritoneum was identified and entered. The bladder blade was then inserted into the pelvis. The vesicouterine peritoneum was identified and a bladder flap was created using sharp and blunt dissection. A hysterotomy incision was then made stained meconium fluid was noted, the fetus was encountered in a clement breech presentation with back up, delivered in the usual fashion. The umbilical cord was doubly clamped and cut and the was handed off to waiting RN. The placenta was then delivered manually, noted to be intact with a three-vessel cord. The uterus was then delivered from the abdomen and the hysterotomy incision was closed with 0 Vicryl in a running locked fashion. A second imbricating layer was then performed. Hemostasis was appreciated. The pelvis then copiously irrigated. The uterus was then returned the abdomen. The gutters were cleared of all clots and debris. Hysterotomy incision was found to be hemostatic. The peritoneum was then loosely reapproximated. The fascial incision was then closed with 0 Vicryl from one lateral edge the midline and the other lateral edge the midline. The Subcutaneous tissue was irrigated and found to be hemostatic. The subcutaneous tissue was then closed with 3-0 Vicryl in a running fashion. The skin was then closed with 4-0 Vicryl in a subarticular fashion. All counts were noted to be correct 2 then the procedure. Patient and tolerated delivery well and are resting comfortably.
[2020-09-26] MEDS ORDERED: LACTATED RINGERS 1,000 ML IV SCH (12:58)
[2020-09-26] MEDS ORDERED: diphenhydrAMINE 50 MG CAP PO PRN (12:58)
[2020-09-26] MEDS ORDERED: NALOXONE 0.4 MG/ML 1 ML VIAL IV PRN (12:58)
[2020-09-26] MEDS ORDERED: OXYTOCIN 30 UNITS/500 ML NS 30 UNIT in SALINE 1 500ML.BAG IV SCH (12:58)
[2020-09-26] MEDS ORDERED: ONDANSETRON 4 MG/2 ML VIAL IVP PRN (12:58)
[2020-09-26] MEDS ORDERED: ZOLPIDEM 5 MG TAB PO PRN (12:58)
[2020-09-26] MEDS ORDERED: diphenhydrAMINE 25 MG CAP PO PRN (12:58)
[2020-09-26] MEDS ORDERED: SIMETHICONE 80 MG CHEWABLE PO PRN (12:58)
[2020-09-26] MEDS ORDERED: METOCLOPRAMIDE 5 MG/ML 2 ML VIAL IVP PRN (12:58)
[2020-09-26] MEDS ORDERED: HYDROcodone/APAP 5-325MG 1 EACH TAB PO PRN (12:58)
[2020-09-26] MEDS ORDERED: diphenhydrAMINE 50 MG/ML 1 ML VIAL IVP PRN ×2 (12:58)
[2020-09-26] MEDS ORDERED: IBUPROFEN IV 800 MG in SODIUM CHLORIDE 0.9% 250 ML IV ONE (13:15)
[2020-09-26] MEDS ORDERED: ACETAMINOPHEN IV (For NPO) 1,000 MG in EMPTY BAG 1 BAG IVPB ONE (13:15)
[2020-09-26] MEDS: SENNOSIDES-DOCUSATE SODIUM 1 EACH TAB PO SCH (22:05)
[2020-09-27] MEDS: LACTATED RINGERS 1,000 ML IV SCH ×2 (05:25→13:03)
[2020-09-27] MEDS: IBUPROFEN 600 MG TAB PO PRN ×3 (06:35→20:17)
[2020-09-27 07:17] LABS: Basophils % (A) 0 %; Eosinophils # (A) 0.2 k/uL (0-0.7); Eosinophils % (A) 2 %; HCT 31.4 % (34.0-46.0); HGB 10.8 gm/dL (11.4-16.0); Lymphocytes # (A) 1.2 k/uL (1.0-4.8); Lymphocytes % (A) 11 %; MCH 32.2 pg (25.0-35.0); MCHC 34.3 g/dL (31.0-37.0); MCV 93.9 fL (80.0-100.0); Mean Platelet Volume 7.6; Monocytes # (A) 0.8 k/uL (0-1.0); Monocytes % (A) 7 %; Neutrophils % (A) 79 %; Platelet Count 163 k/uL (150-450); RBC 3.34 m/uL (3.80-5.40); RDW 12.6 % (11.5-15.5); WBC 11.3 k/uL (3.8-10.6)
--- NOTE | 2020-09-27 08:07 | P.PNOBGPC ---
Subjective - Subjective Principal diagnosis: POD 1 LTCS for breech Interval history: Patient did well overnight. She is ambulating and voiding without difficulty. She states her pain is well-controlled. Her lochia is moderate. She is breast- feeding without difficulty. She notes positive flatus. Patient reports: Reports appetite normal, Reports voiding normally, Reports pain well controlled, Reports ambulating normally [place]: doing well, nursing well Objective - Vital Signs Latest vital signs: Vital Signs Temp Pulse Resp BP Pulse Ox 09/27/20 04:00 98.9 F 92 14 129/72 99 09/27/20 00:00 98.6 F 89 16 117/67 99 09/26/20 20:00 98.3 F 72 14 121/63 98 09/26/20 15:58 98.1 F 77 16 126/56 97 09/26/20 14:50 72 18 134/63 95 09/26/20 14:21 67 16 117/58 09/26/20 13:36 70 18 105/56 97 09/26/20 13:21 68 16 108/60 100 09/26/20 13:06 69 16 105/54 100 09/26/20 12:51 97.1 F L 68 16 106/62 100 09/26/20 10:21 97.7 F 86 17 141/72 Intake and Output 09/26/20 09/27/20 09/27/20 22:59 06:59 14:59 Output Total 1400 1000 Balance -1400 -1000 Output: Urine 1400 1000 Uretheral (Staples) 1400 Other: # Voids 1 - Exam Extremities: Present: edema Abdomen: Present: normal appearance, soft Incision: Present: normal, intact Uterus: Present: normal, firm - Labs Labs: Abnormal Lab Results - Last 24 Hours (Table) 09/26/20 09/27/20 Range/Units 10:30 07:04 WBC 12.6 H 11.3 H (3.8-10.6) k/uL RBC 3.34 L (3.80-5.40) m/uL Hgb 10.8 L (11.4-16.0) gm/dL Hct 31.4 L (34.0-46.0) % Neutrophils # 10.1 H 9.0 H (1.3-7.7) k/uL Assessment and Plan (1) Term Current Visit: Yes Status: Acute Code(s): Z34.90 - ENCNTR FOR SUPRVSN OF NORMAL , UNSP, UNSP TRIMESTER SNOMED Code(s): 22529646 (2) Breech extraction NOS-unspec Current Visit: Yes Status: Acute Code(s): O64.1XX0 - OBSTRUCTED LABOR DUE TO BREECH PRESENTATION, UNSP SNOMED Code(s): 271259959 (3) S/P section Current Visit: Yes Status: Acute Code(s): Z98.891 - HISTORY OF UTERINE SCAR FROM PREVIOUS SURGERY SNOMED Code(s): 382294983 Plan: Patient did well overnight. Will increase ambulation today and advance diet, continue post operative care. Anticipate discharge home tomorrow.
[2020-09-27] MEDS: SENNOSIDES-DOCUSATE SODIUM 1 EACH TAB PO SCH ×3 (08:20→20:17)
[2020-09-27] MEDS: ACETAMINOPHEN TAB 325 MG TAB PO PRN ×3 (09:31→23:18)
[2020-09-27] MEDS: PRENATAL VIT-IRON-FOLIC ACID 1 EACH CAP PO SCH (10:12)
[2020-09-28 00:42] VITALS: RESP 16
[2020-09-28] MEDS: IBUPROFEN 600 MG TAB PO PRN ×2 (03:48→11:03)
[2020-09-28] MEDS: SENNOSIDES-DOCUSATE SODIUM 1 EACH TAB PO SCH (07:41)
[2020-09-28] MEDS: ACETAMINOPHEN TAB 325 MG TAB PO PRN (07:48)
--- NOTE | 2020-09-28 08:23 | P.DS ---
Providers Date of admission: 09/26/20 09:56 Expected date of discharge: 09/28/20 Attending physician: Domitila Mccormick Primary care physician: Stated None - Discharge Diagnosis(es) (1) Term Current Visit: Yes Status: Acute (2) Breech extraction NOS-unspec Current Visit: Yes Status: Acute (3) S/P section Current Visit: Yes Status: Acute Hospital Course: This is a 25-year-old 3 para 0020 that presented to labor and delivery at 40-0/7 weeks for primary secondary to breech presentation. Patient was a transfer of care to our office at 30 weeks. Patient was receiving routine care prior to that. care has been essentially uncomplicated. On bloodwork patient a blood type of O+, rubella status immune, RPR nonreactive, B surface antigen negative, HIV negative, group beta strep culture was negative. Patient was admitted to labor and delivery and was performed without difficulty. Patient delivered a viable male infant at 1213, weight of 8 lbs. 2 oz. and Apgars of 9 and 10 at one and 5 minutes respect daily. For further details on the please the operative report. Patient's postoperative course has been uneventful. On this postoperative day #2 she is ambulating and voiding without difficulty. She is tolerating a regular diet without nausea or vomiting. She states her pain is well- controlled. She would like discharge home today. Plan - Discharge Summary Discharge Rx Participant: No New Discharge Prescriptions: No Action Pnv No.95/Ferrous Fum/Folic AC [ Multivitamin Tablet] 1 each PO DAILY Acetaminophen Tab [Tylenol Tab] 500 mg PO Q6H PRN PRN Reason: Pain Discharge Medication List Acetaminophen Tab [Tylenol Tab] 500 mg PO Q6H PRN 09/25/20 [History] Pnv No.95/Ferrous Fum/Folic AC [ Multivitamin Tablet] 1 each PO DAILY 09/25/20 [History] Follow up Appointment(s)/Referral(s): Cassius Barker MD [STAFF PHYSICIAN] - 2 Weeks Patient Instructions/Handouts: (DC), (GEN) Discharge Disposition: HOME SELF-CARE
[2020-09-28 08:39] VITALS: BP 149/69; PULSE 75; TEMP 98.2
[2020-09-28] MEDS: PRENATAL VIT-IRON-FOLIC ACID 1 EACH CAP PO SCH (09:22)
== END 2020-09-28 11:20 | disposition home or self-care (01) | DRG 788 ==
LOC: 4FBP 09:56
PROVIDERS: ADMIT Obstetrics & Gynecology Obstetrics; ATTEND Obstetrics & Gynecology Obstetrics
PROC: 10D00Z1 Extraction of Products of Conception, Low, Open Approach (ICD-10-PCS; principal; 2020-09-26 12:07)
DX: O64.1XX0 Obstructed labor due to breech presentation, not applicable or unspecified (principal); Z37.0 Single live birth; Z3A.40 40 weeks gestation of pregnancy; Z79.899 Other long term (current) drug therapy; Z87.440 Personal history of urinary (tract) infections; Z90.89 Acquired absence of other organs; Z98.890 Other specified postprocedural states; Z88.1 Allergy status to other antibiotic agents; Z88.0 Allergy status to penicillin; Z88.2 Allergy status to sulfonamides; Z82.49 Family history of ischemic heart disease and other diseases of the circulatory system; Z82.3 Family history of stroke
CPT/HCPCS: 85025; 86850; 86900; 86901

== ENCOUNTER → 2020-10-30 | Outpatient (CLI) | payer BC, OTHER ==
--- NOTE | 2020-10-31 14:29 | USB ---
Reason for exam: clinical finding. Physical Findings: Nurse Summary: patient currently 1 month, questionable abscess, red, warm to touch (nurse ms). US Breast Limited RT Right limited breast ultrasound including focal area of concern, retroareolar and axilla demonstrates a 5.2 x 4.4 x 4.3cm mixed, complex lesion with skin thickening at 8 o'clock. Finding suggest abscess with surrounding cellulitis. Scanned 7-11 o'clock, very painful. These results were verbally communicated with the patient and result sheet given to the patient on 10/30/20. ASSESSMENT: Suspicious, BI-RAD 4 RECOMMENDATION: Surgical consultation of the right breast. Called Dr. Barker's office with mammographic findings and has scheduled an appointment for the patient for 10/30/[address] Murrieta. PRELIMINARY REPORT CALLED AND FAXED TO DR. MURRIETA ON 10/31/20.
== END | disposition home or self-care (01) ==
LOC: RADUSWWP 14:22
PROVIDERS: ATTEND Obstetrics & Gynecology
DX: N64.4 Mastodynia (principal); N63.10 Unspecified lump in the right breast, unspecified quadrant

== ENCOUNTER 2022-01-03 14:31 | Emergency (ER) | payer BC, OTHER ==
[2022-01-03 14:58] VITALS: RESP 18; TEMP 98.2
[2022-01-03 15:36] LABS: Appearance,Urine Clear (Clear); Bilirubin,Urine Negative (Negative); Blood,Urine Small (Negative); Color,Urine Yellow; Glucose,Urine (UA) Negative (Negative); Ketones,Urine Negative (Negative); Leukocyte Esterase,Urine Negative (Negative); Mucus,Urine Occasional /hpf; Nitrite,Urine Negative (Negative); Protein,Urine Negative (Negative); RBC,Urine 8 /hpf (0-5); Specific Gravity,Urine 1.025 (1.001-1.035); Squamous Epithelial Cell,Urine 2 /hpf (0-4); Urobilinogen,Urine <2.0 mg/dL (<2.0); WBC,Urine 1 /hpf (0-5)
[2022-01-03] MEDS ORDERED: SODIUM CHLORIDE 0.9% 1,000 ML IV STA (16:46)
[2022-01-03] MEDS ORDERED: KETOROLAC 15 MG/ML 1 ML VIAL IVP STA (16:46)
[2022-01-03 17:33] LABS: Basophils % (A) 0 %; Eosinophils # (A) 0.1 k/uL (0-0.7); Eosinophils % (A) 1 %; HCT 40.4 % (34.0-46.0); HGB 13.7 gm/dL (11.4-16.0); Lymphocytes # (A) 2.2 k/uL (1.0-4.8); Lymphocytes % (A) 20 %; MCH 31.7 pg (25.0-35.0); MCHC 33.9 g/dL (31.0-37.0); MCV 93.3 fL (80.0-100.0); Mean Platelet Volume 7.6; Monocytes # (A) 0.7 k/uL (0-1.0); Monocytes % (A) 6 %; Neutrophils # (A) 7.8 k/uL (1.3-7.7); Neutrophils % (A) 70 %; Platelet Count 271 k/uL (150-450); RBC 4.32 m/uL (3.80-5.40); WBC 11.1 k/uL (3.8-10.6)
[2022-01-03 17:38] LABS: ALT 18 U/L (4-34); AST 20 U/L (14-36); African American GFR (CKD) >90 (>60 ml/min/1.73 sqM); Albumin 4.2 g/dL (3.5-5.0); Alkaline Phosphatase 99 U/L (38-126); Amylase 54 U/L (30-110); Anion Gap 6 mmol/L; Blood Urea Nitrogen 14 mg/dL (7-17); Calcium 8.9 mg/dL (8.4-10.2); Carbon Dioxide 25 mmol/L (22-30); Chloride 105 mmol/L (98-107); Glucose 88 mg/dL (74-99); Lipase 73 U/L (23-300); Non-African American GFR(CKD) >90 (>60 ml/min/1.73 sqM); Potassium 4.4 mmol/L (3.5-5.1); Sodium 136 mmol/L (137-145); Total Bilirubin 0.4 mg/dL (0.2-1.3); Total Protein 7.5 g/dL (6.3-8.2)
--- NOTE | 2022-01-03 18:38 | CT ---
EXAMINATION TYPE: CT abdomen pelvis wo con DATE OF EXAM: 01/03/2022 HISTORY: R flank pain x [address] DLP: 1118.4 mGycm. Automated Exposure Control for Dose Reduction was Utilized. TECHNIQUE: CT scan of the abdomen and pelvis is performed without oral or IV contrast. COMPARISON: NONE FINDINGS: Within the limitations of a non-contrast study with mild patient motion artifact, the foll owing observations are made. LUNG BASES: No significant abnormality is appreciated. LIVER/GB: No significant abnormality is appreciated. PANCREAS: No significant abnormality is seen. SPLEEN: No significant abnormality is seen. ADRENALS: No significant abnormality is seen. KIDNEYS, URETERS, BLADDER: Right kidney: There is no hydronephrosis or hydroureter. 4 mm lower pole nonobstructing calcification is noted. Right perirenal space is negative. Left kidney: No hydronephrosis or hydroureter. 1 mm nonobstructing mid pole calcifications noted. Lef t perirenal space is negative. Urinary bladder: Not distended. No focal findings. BOWEL: No significant abnormality is seen. Appendix has normal appearance. GENITAL ORGANS: No gross abnormality seen. LYMPH NODES: No greater than 1cm abdominal or pelvic lymph nodes are appreciated. OSSEOUS STRUCTURES: No significant abnormality is seen. IMPRESSION: NO ACUTE PROCESS.
[2022-01-03 18:58] VITALS: BP 116/58; PULSE 89
--- NOTE | 2022-01-03 18:59 | ED ---
General Adult HPI - General Chief complaint: Urogenital Stated complaint: Back pain Time Seen by Provider: 01/03/22 16:33 Source: patient Mode of arrival: ambulatory Limitations: no limitations - History of Present Illness Initial comments: This 26-year-old female with a past medical history of kidney stones presents emergency Department with right mid to lower back pain along with increased urinary frequency that began Friday evening. Patient states she is unsure if she pulled a muscle in her back as she was lifting her [id number] daughter a lot and may have twisted wrong. Patient states she wants to be sure she doesn't have any kidney stones or any kidney infection. Patient states she has experienced a little bit of nausea but denies any vomiting or fever. Patient denies any urinary burning, hesitancy, dribbling or blood in her urine. Patient states she's been eating and drinking as usual. Patient states her pain worsens when she pushes on the area. Patient denies any chest pain or shortness of breath, abdominal pain, nausea, vomiting, change in bowel, change in appetite, lightheadedness, dizziness, change in vision, sore throat, cough. Patient denies any saddle anesthesia or bowel or bladder retention/incontinence. She d enies any swelling or erythema to area of pain. - Related Data Home Medications Medication Instructions Recorded Confirmed Acetaminophen Tab [Tylenol Tab] 500 mg PO Q6H PRN 09/25/20 09/26/20 Pnv No.95/Ferrous Fum/Folic AC 1 each PO DAILY 09/25/20 09/26/20 [ Multivitamin Tablet] Allergies Allergy/AdvReac Type Severity Reaction Status Date / Time ampicillin Allergy Anaphylaxis Verified 01/03/22 14:57 Cephalosporins Allergy Anaphylaxis Verified 01/03/22 14:57 Penicillins Allergy Anaphylaxis Verified 01/03/22 14:57 sulfamethoxazole AdvReac Nausea & Verified 01/03/22 14:57 [From Bactrim] Vomiting trimethoprim [From Bactrim] AdvReac Nausea & Verified 01/03/22 14:57 Vomiting Review of Systems ROS Statement: Those systems with pertinent positive or pertinent negative responses have been documented in the HPI. ROS Other: All systems not noted in ROS Statement are negative. Past Medical History Past Medical History: No Reported History Additional Past Medical History / Comment(s): hypoglycemia,hospitalized at 20 weeks for kidney infection, kidney stones. History of Any Multi-Drug Resistant Organisms: MRSA Date of last positivie culture/infection: 10-25-2020 MDRO Source:: right breast Past Surgical History: Adenoidectomy, Tonsillectomy Past Anesthesia/Blood Transfusion Reactions: No Reported Reaction Additional Past Anesthesia/Blood Transfusion Reaction / Comment(s): no hx blood transfusion Past Psychological History: Anxiety, Depression Smoking Status: Never smoker Past Alcohol Use History: None Reported Past Drug Use History: None Reported - Past Family History Mother Additional Family Medical History / Comment(s): heart condition unsure of what type. Father Family Medical History: Coronary Artery Disease (CAD), CVA/TIA General Exam Limitations: no limitations General appearance: alert, in no apparent distress Head exam: Present: atraumatic, normocephalic, normal inspection Eye exam: Present: normal appearance, PERRL, EOMI. Absent: scleral icterus, conjunctival injection, periorbital swelling Pupils: Present: normal accommodation ENT exam: Present: normal exam, mucous membranes moist Neck exam: Present: normal inspection, full ROM. Absent: tenderness, meningismus, lymphadenopathy Respiratory exam: Present: normal lung sounds bilaterally. Absent: respiratory distress, wheezes, rales, rhonchi, stridor Cardiovascular Exam: Present: regular rate, normal rhythm, normal heart sounds. Absent: systolic murmur, diastolic murmur, rubs, gallop, clicks GI/Abdominal exam: Present: soft, normal bowel sounds. Absent: distended, tenderness, guarding, rebound, rigid Extremities exam: Present: normal inspection, full ROM, normal capillary refill. Absent: tenderness, pedal edema, joint swelling, calf tenderness Back exam: Present: normal inspection, full ROM, CVA tenderness (R), paraspinal tenderness (Tenderness to deep palpation of right lower lumbar paraspinal vincent on. No erythema, warmth, swelling, edema or sign of infection present. Patient denies any recent trauma or falls or hitting this area). Absent: CVA tenderness (L), vertebral tenderness Neurological exam: Present: alert, oriented X3, CN II-XII intact Psychiatric exam: Present: normal affect, normal mood Skin exam: Present: warm, dry, intact, normal color. Absent: rash Course Vital Signs 01/03/22 01/03/22 14:53 18:57 Temperature 98.2 F Pulse Rate 75 89 Respiratory 18 18 Rate Blood Pressure 130/78 116/58 O2 Sat by Pulse 98 99 Oximetry Medical Decision Making - Medical Decision Making This 26-year-old female presents emergency Department with right lower back pain. Patient with white blood cells 11.1, urine with small blood and occasional mucous. Urine hCG not detected. CT abdomen and pelvis without contrast impression: No acute process seen. There is no hydronephrosis or hydroureter. 4 mm lower pole nonobstructing calcification is noted in the right kidney. No hydronephrosis or hydroureter. 1 mm nonobstructing mid pole calcifications noted of left kidney. After receiving fluids and Toradol, patient states her pain has significantly decreased and states she feels much better. Lidocaine patch applied to right lower back. Patient instructed to remove lidocaine patch in 12 hours. Instructed patient to follow-up with her primary care provider next 1-2 days. Strict return precautions were discussed. Patient verbally agreed to plan. Patient sent home in stable condition. Case discussed in detail with my attending, Dr. Lewis. - Lab Data Result diagrams: 01/03/22 17:15 01/03/22 17:15 Lab Results 01/03/22 01/03/22 01/03/22 Range/Units 15:11 16:54 17:15 WBC 11.1 H (3.8-10.6) k/uL RBC 4.32 (3.80-5.40) m/uL Hgb 13.7 (11.4-16.0) gm/dL Hct 40.4 (34.0-46.0) % MCV 93.3 (80.0-100.0) fL MCH 31.7 (25.0-35.0) pg MCHC 33.9 (31.0-37.0) g/dL RDW 13.0 (11.5-15.5) % Plt Count 271 (150-450) k/uL MPV 7.6 Neutrophils % 70 % Lymphocytes % 20 % Monocytes % 6 % Eosinophils % 1 % Basophils % 0 % Neutrophils # 7.8 H (1.3-7.7) k/uL Lymphocytes # 2.2 (1.0-4.8) k/uL Monocytes # 0.7 (0-1.0) k/uL Eosinophils # 0.1 (0-0.7) k/uL Basophils # 0.0 (0-0.2) k/uL Sodium (137-145) mmol/L Potassium (3.5-5.1) mmol/L Chloride (98-107) mmol/L Carbon Dioxide (22-30) mmol/L Anion Gap mmol/L BUN (7-17) mg/dL Creatinine (0.52-1.04) mg/dL Est GFR (CKD-EPI)AfAm (>60 ml/min/1.73 sqM) Est GFR (CKD-EPI)NonAf (>60 ml/min/1.73 sqM) Glucose (74-99) mg/dL Plasma Lactic Acid Jassi (0.7-2.0) mmol/L Calcium (8.4-10.2) mg/dL Total Bilirubin (0.2-1.3) mg/dL AST (14-36) U/L ALT (4-34) U/L Alkaline Phosphatase (38-126) U/L Total Protein (6.3-8.2) g/dL Albumin (3.5-5.0) g/dL Amylase (30-110) U/L Lipase (23-300) U/L Urine Color Yellow Urine Appearance Clear (Clear) Urine pH 6.0 (5.0-8.0) Ur Specific Gore 1.025 (1.001-1.035) Urine Protein Negative (Negative) Urine Glucose (UA) Negative (Negative) Urine Ketones Negative (Negative) Urine Blood Small H (Negative) Urine Nitrite Negative (Negative) Urine Bilirubin Negative (Negative) Urine Urobilinogen <2.0 (<2.0) mg/dL Ur Leukocyte Esterase Negative (Negative) Urine RBC 8 H (0-5) /hpf Urine WBC 1 (0-5) /hpf Ur Squamous Epith Cells 2 (0-4) /hpf Urine Mucus Occasional H (None) /hpf Urine HCG, Qual Not Detected (Not Detectd) 01/03/22 01/03/22 Range/Units 17:15 17:15 WBC (3.8-10.6) k/uL RBC (3.80-5.40) m/uL Hgb (11.4-16.0) gm/dL Hct (34.0-46.0) % MCV (80.0-100.0) fL MCH (25.0-35.0) pg MCHC (31.0-37.0) g/dL RDW (11.5-15.5) % Plt Count (150-450) k/uL MPV Neutrophils % % Lymphocytes % % Monocytes % % Eosinophils % % Basophils % % Neutrophils # (1.3-7.7) k/uL Lymphocytes # (1.0-4.8) k/uL Monocytes # (0-1.0) k/uL Eosinophils # (0-0.7) k/uL Basophils # (0-0.2) k/uL Sodium 136 L (137-145) mmol/L Potassium 4.4 (3.5-5.1) mmol/L Chloride 105 (98-107) mmol/L Carbon Dioxide 25 (22-30) mmol/L Anion Gap 6 mmol/L BUN 14 (7-17) mg/dL Creatinine 0.81 (0.52-1.04) mg/dL Est GFR (CKD-EPI)AfAm >90 (>60 ml/min/1.73 sqM) Est GFR (CKD-EPI)NonAf >90 (>60 ml/min/1.73 sqM) Glucose 88 (74-99) mg/dL Plasma Lactic Acid Jassi 1.0 (0.7-2.0) mmol/L Calcium 8.9 (8.4-10.2) mg/dL Total Bilirubin 0.4 (0.2-1.3) mg/dL AST 20 (14-36) U/L ALT 18 (4-34) U/L Alkaline Phosphatase 99 (38-126) U/L Total Protein 7.5 (6.3-8.2) g/dL Albumin 4.2 (3.5-5.0) g/dL Amylase 54 (30-110) U/L Lipase 73 (23-300) U/L Urine Color Urine Appearance (Clear) Urine pH (5.0-8.0) Ur Specific Gore (1.001-1.035) Urine Protein (Negative) Urine Glucose (UA) (Negative) Urine Ketones (Negative) Urine Blood (Negative) Urine Nitrite (Negative) Urine Bilirubin (Negative) Urine Urobilinogen (<2.0) mg/dL Ur Leukocyte Esterase (Negative) Urine RBC (0-5) /hpf Urine WBC (0-5) /hpf Ur Squamous Epith Cells (0-4) /hpf Urine Mucus (None) /hpf Urine HCG, Qual (Not Detectd) - Radiology Data Radiology results: report reviewed, image reviewed Disposition Clinical Impression: Low back strain, Nephrolithiasis Disposition: HOME SELF-CARE Condition: Stable Instructions (If sedation given, give patient instructions): Low Back Strain (ED), Lower Back Exercises (ED) Additional Instructions: Please remove lidocaine patch in 12 hours. Return to the emergency department with any new, worsening, or concerning symptoms. Follow-up with your primary care provider in next 1-2 days Is patient prescribed a controlled substance at d/c from ED?: No Referrals: Jazmyn Hutchinson MD [Primary Care Provider] - 1-2 days Time of Disposition: 19:06
[2022-01-03] MEDS ORDERED: LIDOCAINE 5% PATCH TOPICAL SCH (19:00)
== END 2022-01-03 19:13 | disposition home or self-care (01) ==
LOC: EC 14:31
DX: N20.0 Calculus of kidney (principal); Z88.0 Allergy status to penicillin; Z88.1 Allergy status to other antibiotic agents; Z88.2 Allergy status to sulfonamides
CPT/HCPCS: 36415; 80053; 82150; 83605; 83690; 85025; 81001; 81025; 74176; 99284; 96374; 96361; J1885

== ENCOUNTER 2023-03-20 10:16 | Outpatient (CLI) | payer BC, OTHER ==
[2023-03-20 11:46] VITALS: BP 115/56; PULSE 66; RESP 16; TEMP 97.9
--- NOTE | 2023-03-27 10:51 | P.MSEPDOC ---
Presenting Problems - Arrival Data Date of Arrival on Unit: 03/20/23 Time of Arrival on Unit: 10:18 Mode of Transport: Ambulatory - Complaint OB-Reason for Admission/Chief Complaint: Possible Onset of Labor Comment: pt reports to triage with c/o of cramping starting over an hour ago. Pt reports. called office and housing officer instructed pt to come in for evaluation. Pt denies leaking. or bleeding of fluids. Denies complications with . Reports RC/S scheduled for. 05/01/23. Medical History - Information : 2 Para: 1 Term: 1 : 0 Abortions: Spontaneous or Elective: 0 Number of Living Children: 1 - Gestational Age Gestational Age by SOHAN (wks/days): 34 Weeks and 0 Days Review of Systems - Review of Systems Constitutional: No problems Breast: No problems ENT: No problems Cardiovascular: No problems Respiratory: No problems Gastrointestinal: No problems Genitourinary: No problems Musculoskeletal: No problems Neurological: No problems Skin: No problems Vital Signs - Temperature Temperature: 97.9 F Temperature Source: Oral - Pulse Right Sitting Pulse Rate: 66 Pulse Assessment Method: Automatic Cuff - Respirations Respiratory Rate: 16 Oxygen Delivery Method: Room Air O2 Sat by Pulse Oximetry: 96 - Blood Pressure Right Arm Sitting Blood Pressure: 115/56 Blood Pressure Mean: 75 Blood Pressure Source: Automatic Cuff Medical Screen Scoring - Cervical Exam Membranes: Intact - Uterine Contractions Frequency From (mins): 0 Frequency To (mins): 0 Duration From (seconds): 0 Duration To (seconds): 0 Intensity: Absent Resting: Soft to palpation - Assessment - Baby A Baseline FHR: 135 Heart Rate - NICHD Category: Category I (Normal) NST: Reactive Physician Notification - Physician Notified Physician Notified Date: 03/20/23 Physician Notified Time: 11:04 Physician: Cassius Barker New Order Received: Yes - Notification Comment Comment: report of patient complaint cramping X1 hour,. no bleeding or loss of fluid, reviewed FHR and no contractions. Orders to discharge. patient Maternal Triage Index - Maternal Triage Index Presenting for scheduled procedure w/no complaint: No - Stat/Priority 1 Stat Priority 1: No - Urgent/Priority 2 Urgent Priority 2: Yes Provider Notified: Cassius Barker Provider Notified Time: 11:04 Criteria Met for Priority 2: report of patient complaint cramping X1 hour,. no bleeding or loss of fluid, reviewed FHR and no contractions. Orders to discharge. patient Disposition - Disposition OB Disposition: Discharge to home Discharge Date: 03/20/23 Discharge Time: 11:05 I agree with the RN Medical Screening Exam: Yes Physician's MSE Comment: I have neither seen nor examined the patient. Case reviewed; plan agreed upon as documented in EMR&OBIX.: Yes Diagnosis: RELATED CONDITIONS, UNSPECIFIED, THIRD TRIMESTER
== END 2023-03-20 11:05 | disposition home or self-care (01) ==
LOC: FBPOP 10:16
PROVIDERS: ATTEND Obstetrics & Gynecology
DX: O26.93 Pregnancy related conditions, unspecified, third trimester (principal); Z3A.34 34 weeks gestation of pregnancy; Z88.0 Allergy status to penicillin; Z88.2 Allergy status to sulfonamides; Z88.8 Allergy status to other drugs, medicaments and biological substances
CPT/HCPCS: 59025; 99213

== ENCOUNTER 2023-05-01 09:58 | Inpatient (IN) | payer BC, OTHER ==
[2023-05-01] MEDS ORDERED: CARBOPROST TROMETHAMINE 250 MCG/ML 1 ML AMP IM PRN (10:39)
[2023-05-01] MEDS ORDERED: METHYLERGONOVINE 0.2 MG/ML 1 ML AMP IM PRN (10:39)
[2023-05-01] MEDS ORDERED: OXYTOCIN 10 UNIT/ML 1 ML VIAL IM PRN (10:39)
[2023-05-01] MEDS ORDERED: miSOPROStoL 200 MCG TAB PO PRN (10:39)
[2023-05-01] MEDS ORDERED: TRANEXAMIC 1,000 MG/100ML-NACL 1,000 MG in EMPTY BAG 1 BAG IV PRN (10:39)
[2023-05-01] MEDS ORDERED: CITRIC ACID-SODIUM CITRATE 15 ML CUP PO ONE (10:39)
[2023-05-01] MEDS: LACTATED RINGERS 1,000 ML IV SCH ×3 (10:40→17:50)
[2023-05-01 10:52] LABS: Basophils % (A) 0 %; Eosinophils # (A) 0.1 k/uL (0-0.7); Eosinophils % (A) 1 %; HGB 12.6 gm/dL (11.4-16.0); Lymphocytes # (A) 1.4 k/uL (1.0-4.8); Lymphocytes % (A) 12 %; MCH 32.2 pg (25.0-35.0); MCHC 34.9 g/dL (31.0-37.0); MCV 92.2 fL (80.0-100.0); Mean Platelet Volume 8.1; Monocytes # (A) 0.8 k/uL (0-1.0); Monocytes % (A) 7 %; Neutrophils # (A) 9.7 k/uL (1.3-7.7); Neutrophils % (A) 79 %; Platelet Count 177 k/uL (150-450); RDW 14.4 % (11.5-15.5); WBC 12.2 k/uL (3.8-10.6)
[2023-05-01] MEDS ORDERED: CLINDAMYCIN 900 MG in DEXTROSE 5% IN WATER 50 ML IVPB STA ×2 (11:25)
[2023-05-01] MEDS ORDERED: MORPHINE SULFATE (PF) 0.3 MG/0.3 ML SYR ONE (11:43)
[2023-05-01] MEDS ORDERED: KETOROLAC 15 MG/ML 1 ML VIAL ONE (11:43)
[2023-05-01] MEDS ORDERED: ONDANSETRON 4 MG/2 ML VIAL ONE (11:43)
[2023-05-01] MEDS ORDERED: OXYTOCIN 30 UNITS/500 ML NS BAG IV ONE (11:43)
[2023-05-01] MEDS ORDERED: NALBUPHINE 10 MG/ML (10 ML MDV) ONE (11:43)
[2023-05-01] MEDS ORDERED: PHENYLEPHRINE-0.9% NACL SYG 1,000 MCG/10 ML SYRINGE ONE (11:43)
--- NOTE | 2023-05-01 11:49 | P.HPOB ---
History of Present Illness H&P Date: 05/01/23 Chief Complaint: 39+ weeks intrauterine , previous section requesting repe The patient is a 28-year-old 4 para 1021 admitted at 39+ weeks as established by last menstrual period and confirmed by 10 week ultrasound. She is admitted for repeat low transverse section having had a previous section for breech presentation and requested repeat time. Her has been essentially entirely uncomplicated and group B strep status is negative. On labor and delivery, all signs reassuring with a category 1 heart rate tracing. Obstetrical history: 4 para 1021 with 1 term section secondary to breech without complications. Current statistics are listed in history present illness. EDC of 05/07/2023 was established by last menstrual period and confirmed by 10 week ultrasound. Laboratory workup demonstrates a blood type of O+ with a negative antibody screen. Rubella status is immune. The remainder of the laboratory workup was within normal limits. Early Glucola and second trimester Glucola were both normal. Group B strep status is negative. Gynecologic history: Unremarkable with no history of any infections to include STDs. Review of Systems Review of systems is confined to history of present illness. Past Medical History Past Medical History: GERD/Reflux Additional Past Medical History / Comment(s): hypoglycemia,hospitalized at 20 weeks w/last for kidney infection/stones, recent issue w/this w/kidney stones, scoliosis History of Any Multi-Drug Resistant Organisms: None Reported, MRSA Date of last positivie culture/infection: 10-25-2020 MDRO Source:: right breast Past Surgical History: Adenoidectomy, Section, Tonsillectomy Past Anesthesia/Blood Transfusion Reactions: No Reported Reaction Additional Past Anesthesia/Blood Transfusion Reaction / Comment(s): no hx blood transfusion Past Psychological History: Anxiety, Depression Smoking Status: Never smoker Past Alcohol Use History: None Reported Past Drug Use History: None Reported - Past Family History Mother Additional Family Medical History / Comment(s): heart condition unsure of what type. Father Family Medical History: Coronary Artery Disease (CAD), CVA/TIA Medications and Allergies Home Medications Medication Instructions Recorded Confirmed Type Pnv No.95/Ferrous Fum/Folic AC 1 each PO DAILY 09/25/20 04/28/23 History [ Multivitamin Tablet] Sertraline [Zoloft] 50 mg PO DAILY 03/20/23 04/28/23 History Allergies Allergy/AdvReac Type Severity Reaction Status Date / Time ampicillin Allergy Anaphylaxis Verified 04/28/23 16:10 Cephalosporins Allergy Anaphylaxis Verified 04/28/23 16:10 Penicillins Allergy Anaphylaxis Verified 04/28/23 16:10 sulfamethoxazole AdvReac Nausea & Verified 04/28/23 16:10 [From Bactrim] Vomiting trimethoprim [From Bactrim] AdvReac Nausea & Verified 04/28/23 16:10 Vomiting Exam Vital Signs Temp Pulse Resp BP 05/01/23 10:21 97.6 F 83 18 134/72 Intake and Output 04/30/23 05/01/23 05/01/23 22:59 06:59 14:59 Other: Weight 112.491 kg In general, this is a well-developed, well-nourished white female in no acute distress. Her heart has a regular rhythm and rate without murmur. Her lungs clear to auscultation bilaterally in all sloan. Her abdomen is gravid, nondistended, has normal active bowel sounds, soft, nontender, and without any palpable masses aside from uterine fundus. Her extremities are without any cyanosis, clubbing, or edema and are nontender to palpation bilaterally. Digi matthieu cervical examination is deferred. Results Result Diagrams: 05/01/23 10:37 Abnormal Lab Results - Last 24 Hours (Table) 05/01/23 Range/Units 10:37 WBC 12.2 H (3.8-10.6) k/uL Neutrophils # 9.7 H (1.3-7.7) k/uL Assessment and Plan (1) Previous section Current Visit: Yes Status: Acute Code(s): Z98.891 - HISTORY OF UTERINE SCAR FROM PREVIOUS SURGERY SNOMED Code(s): 297592679 (2) Term Current Visit: Yes Status: Acute Code(s): Z34.90 - ENCNTR FOR SUPRVSN OF NORMAL , UNSP, UNSP TRIMESTER SNOMED Code(s): 18804382 Plan: The patient is admitted for repeat low transverse section. The risks and complications been thoroughly discussed and she has understood and agreed to proceed.
[2023-05-01] MEDS ORDERED: diphenhydrAMINE 50 MG CAP PO PRN (12:45)
[2023-05-01] MEDS ORDERED: ONDANSETRON 4 MG/2 ML VIAL IVP PRN (12:45)
[2023-05-01] MEDS ORDERED: NALOXONE 0.4 MG/ML 1 ML VIAL IV PRN (12:45)
[2023-05-01] MEDS ORDERED: LANOLIN CREAM 5 GM TUBE TOPICAL PRN (12:45)
[2023-05-01] MEDS ORDERED: METOCLOPRAMIDE 5 MG/ML 2 ML VIAL IVP PRN (12:45)
[2023-05-01] MEDS ORDERED: ZOLPIDEM 5 MG TAB PO PRN (12:45)
[2023-05-01] MEDS ORDERED: diphenhydrAMINE 50 MG/ML 1 ML VIAL IVP PRN ×2 (12:45)
[2023-05-01] MEDS ORDERED: OXYTOCIN 30 UNITS/500 ML NS 30 UNIT in SALINE 1 500ML.BAG IV SCH (12:45)
[2023-05-01] MEDS ORDERED: diphenhydrAMINE 25 MG CAP PO PRN (12:45)
--- NOTE | 2023-05-01 12:45 | P.OP ---
Date of Procedure: 05/01/23 Preoperative Diagnosis: #1. 39-3/7 weeks, previous section, requesting repeat Postoperative Diagnosis: Same Procedure(s) Performed: #1. Repeat low transverse section Anesthesia: spinal Surgeon: Cassius Barker General Magistrate #1: Zoya He Estimated Blood Loss (ml): 434 IV fluids (ml): 800 Urine output (ml): 100 Pathology: none sent Condition: stable Disposition: floor Operative Findings: The patient was taken to the operating room where she was delivered of a viable 7 lbs. 13 oz. baby boy with Apgars of 9 at 1 minute and 9 at 5 minutes in the occiput anterior position. There was a loose nuchal cord 1 reduced upon delivery of the head. The placenta was delivered manually, intact, and grossly normal with a grossly normal three-vessel cord. The uterus, tubes, and ovaries were entirely normal to inspection. There was a moderate amount of scarring at the level of the subcutaneous layers and fascia. Description of Procedure: The patient was prepped and draped in usual fashion after spinal anesthesia was administered by the anesthesiologist. A Pfannenstiel incision was made through pre-existing scar and extended into the abdominal cavity without any significant difficulty. The bladder peritoneum was noted to be scarred relatively high and was therefore incised and reflected distally. A 2 cm incision was made in the transverse plane of the lower uterine segment to enter the uterus at which time clear fluid was noted. The incision was extended in both directions using the bandage scissors. The head was elevated up and through the incision where the nose and mouth were thoroughly suctioned. A nuchal cord 1 was noted and was reduced on the field. Remainder of the was delivered onto the field where the cord was doubly clamped, cut, and the infant passed for resuscitative measures with weight and Apgars as noted above. cord blood was collected per protocol. A segment of cord was doubly clamped, cut, and set aside should cord gases become necessary. The placenta was delivered manually and intact as noted above. The uterus was exteriorized and the interior cavity of the uterus swept of any remaining placental or membranous fragments. The margins of the uterine incision were grasped with Stern clamps and the uterus closed in 2 layers. The first layer was a running locking stitch of 0 chromic catgut followed by a running imbricating layer of 0 chromic catgut, each from margin to margin. It hemostasis appeared to be excellent. The posterior cul-de-sac was suctioned with a guard and the uterine and ovarian findings were normal as noted above. The uterus was replaced within the abdominal cavity and the gutters were swept of any remaining blood, fluid, or clot. The incision was reexamined and found to be hemostatic. The parietal peritoneum was loosely reapproximated in the layer of muscles examined and made hemostatic with the Bovie. The fascia was closed with 2 running stitches of 0 Vicryl proceeding from the lateral margins to the midpoint. The subcutaneous tissues were irrigated, made hemostatic with the Bovie, and reapproximated with a running stitch of 30 plain catgut. The skin was reapproximated with a running subcuticular stitch of 4-0 Vicryl from margin to margin. This was followed by placement of half-inch Steri-Strips placed with Mastisol. Quantitative blood loss for the case was 434 mL. There were no compilations. All sponge, instrument, needle counts were correct. The patient tolerated the procedure well and proceeded to the recovery room in stable condition. Both mother and are resting comfortably in recovery.
[2023-05-01 14:54] VITALS: RESP 16
[2023-05-01] MEDS: ACETAMINOPHEN TAB 500 MG TAB PO SCH (17:50)
[2023-05-01] MEDS: KETOROLAC 15 MG/ML 1 ML VIAL IVP PRN (21:44)
[2023-05-02] MEDS: ACETAMINOPHEN TAB 500 MG TAB PO SCH ×4 (00:58→18:49)
[2023-05-02] MEDS: SENNOSIDES-DOCUSATE SODIUM 1 EACH TAB PO SCH ×3 (01:03→22:18)
[2023-05-02] MEDS: IBUPROFEN 600 MG TAB PO SCH ×5 (01:05→22:18)
[2023-05-02] MEDS: LACTATED RINGERS 1,000 ML IV SCH ×3 (01:44→06:12)
[2023-05-02 07:31] LABS: Basophils % (A) 0 %; Eosinophils # (A) 0.1 k/uL (0-0.7); Eosinophils % (A) 1 %; HCT 34.3 % (34.0-46.0); HGB 11.5 gm/dL (11.4-16.0); Lymphocytes # (A) 1.1 k/uL (1.0-4.8); Lymphocytes % (A) 8 %; MCH 31.2 pg (25.0-35.0); MCHC 33.6 g/dL (31.0-37.0); MCV 92.9 fL (80.0-100.0); Mean Platelet Volume 8.5; Monocytes # (A) 0.8 k/uL (0-1.0); Monocytes % (A) 6 %; Neutrophils # (A) 11.2 k/uL (1.3-7.7); Neutrophils % (A) 84 %; Platelet Count 169 k/uL (150-450); RBC 3.69 m/uL (3.80-5.40); RDW 14.6 % (11.5-15.5); WBC 13.4 k/uL (3.8-10.6)
[2023-05-02] MEDS: KETOROLAC 15 MG/ML 1 ML VIAL IVP PRN (08:07)
--- NOTE | 2023-05-02 09:01 | P.PN ---
Progress Note - Text Progress Note Date: 05/02/23 Postoperative day 1 status post section under spinal anesthesia, and i ntrathecal morphine given for postoperative analgesia, patient doing well, there is no anesthesia related complications, Patient had no headache, vital signs stable , Assessment and plan= postop day 1 status post , doing well there is no anesthesia related complication.
--- NOTE | 2023-05-02 09:45 | P.PNOBGPC ---
Subjective - Subjective Patient reports: Reports appetite normal, Reports voiding normally, Reports pain well controlled, Reports ambulating normally : doing well, nursing well Objective - Vital Signs Latest vital signs: Vital Signs Temp Pulse Resp BP Pulse Ox 05/02/23 03:54 98.0 F 70 16 110/80 98 05/02/23 00:00 98.6 F 73 16 107/68 99 05/01/23 20:00 98.9 F 60 16 110/71 98 05/01/23 14:46 96.9 F L 70 16 113/57 100 05/01/23 14:16 62 18 114/55 100 05/01/23 13:46 63 16 115/56 98 05/01/23 13:31 68 18 113/59 98 05/01/23 13:16 69 16 129/60 70 L 05/01/23 13:01 68 18 124/59 96 05/01/23 12:47 97 F L 70 18 119/55 05/01/23 10:21 97.6 F 83 18 134/72 Intake and Output 05/01/23 05/02/23 05/02/23 22:59 06:59 14:59 Output Total 800 240 Balance -800 -240 Output: Urine 800 240 Uretheral (Staples) 400 Other: # Voids 1 - Exam Extremities: Present: normal Abdomen: Present: normal appearance, soft. Absent: distention, tenderness Incision: Present: normal, dry, intact Uterus: Present: normal, firm (The uterine fundus is tonic and minimally tender below the umbilicus.) - Labs Labs: Abnormal Lab Results - Last 24 Hours (Table) 05/01/23 05/02/23 Range/Units 10:37 06:46 WBC 12.2 H 13.4 H (3.8-10.6) k/uL RBC 3.69 L (3.80-5.40) m/uL Neutrophils # 9.7 H 11.2 H (1.3-7.7) k/uL Assessment and Plan (1) Previous section Current Visit: Yes Status: Acute Code(s): Z98.891 - HISTORY OF UTERINE SCAR FROM PREVIOUS SURGERY SNOMED Code(s): 332725859 (2) Term Current Visit: Yes Status: Acute Code(s): Z34.90 - ENCNTR FOR SUPRVSN OF NORMAL , UNSP, UNSP TRIMESTER SNOMED Code(s): 51606691 (3) S/P section Current Visit: No Status: Acute Code(s): Z98.891 - HISTORY OF UTERINE SCAR FROM PREVIOUS SURGERY SNOMED Code(s): 192016879 Plan: Continue routine and postoperative care. I have encouraged the patient and the hallways routinely. She is tolerating regular diet. I would anticipate discharge home tomorrow pending no complications.
[2023-05-03] MEDS: ACETAMINOPHEN TAB 500 MG TAB PO SCH ×3 (01:25→11:45)
[2023-05-03] MEDS: IBUPROFEN 600 MG TAB PO SCH ×3 (06:34→08:47)
[2023-05-03 09:00] VITALS: BP 133/77; PULSE 80; TEMP 97.6
--- NOTE | 2023-05-03 10:04 | P.DS ---
Providers Date of admission: 05/01/23 09:58 Expected date of discharge: 05/03/23 Attending physician: Cassius Barker Primary care physician: Stated None - Discharge Diagnosis(es) (1) Previous section Current Visit: Yes Status: Acute (2) Term Current Visit: Yes Status: Acute (3) S/P section Current Visit: No Status: Acute Hospital Course: This is a 28-year-old 4 now para 2021 that presented to labor and delivery at 39-3/7 weeks for repeat section. Patient had been receiving routine care which has been essentially uncomplicated. For full details on this patient please the dictated history and physical. Patient was admitted to labor and delivery and repeat section was performed without difficulty. Patient delivered a viable male infant at 1206, weight of 7 lbs. 13 oz. Patient has done well postoperatively. On this postoperative day #2 she is ambulating and voiding without difficulty. She is tolerating a regular diet without nausea or vomiting. She states her pain is well- controlled. She is requesting discharge home. Patient Condition at Discharge: Good Plan - Discharge Summary Discharge Rx Participant: Yes New Discharge Prescriptions: No Action Pnv No.95/Ferrous Fum/Folic AC [ Multivitamin Tablet] 1 each PO DAILY Sertraline [Zoloft] 50 mg PO DAILY Discharge Medication List Pnv No.95/Ferrous Fum/Folic AC [ Multivitamin Tablet] 1 each PO DAILY 09/25/20 [History] Sertraline [Zoloft] 50 mg PO DAILY 03/20/23 [History] Follow up Appointment(s)/Referral(s): Cassius Barker MD [STAFF PHYSICIAN] - 2 Weeks Patient Instructions/Handouts: (GEN), (DC) Activity/Diet/Wound Care/Special Instructions: No tub baths or intercourse until 6 weeks postoperatively. Patient is to call the office to make a routine postoperative appointment in 2 weeks. She had any concerns prior to supplement she is urged to call the office. Discharge Disposition: HOME SELF-CARE
== END 2023-05-03 12:00 | disposition home or self-care (01) | DRG 788 ==
LOC: 4FBP 09:58
PROVIDERS: ADMIT Obstetrics & Gynecology; ATTEND Obstetrics & Gynecology
PROC: 10D00Z1 Extraction of Products of Conception, Low, Open Approach (ICD-10-PCS; principal; 2023-05-01 12:00)
DX: O34.211 Maternal care for low transverse scar from previous cesarean delivery (principal); F32.A Depression, unspecified; O99.62 Diseases of the digestive system complicating childbirth; K21.9 Gastro-esophageal reflux disease without esophagitis; O69.81X0 Labor and delivery complicated by cord around neck, without compression, not applicable or unspecified; O99.344 Other mental disorders complicating childbirth; O99.892 Other specified diseases and conditions complicating childbirth; F41.9 Anxiety disorder, unspecified; M41.9 Scoliosis, unspecified; Z37.0 Single live birth; Z3A.39 39 weeks gestation of pregnancy; Z79.899 Other long term (current) drug therapy; Z86.14 Personal history of Methicillin resistant Staphylococcus aureus infection; Z87.442 Personal history of urinary calculi; Z88.0 Allergy status to penicillin; Z88.1 Allergy status to other antibiotic agents; Z88.2 Allergy status to sulfonamides
CPT/HCPCS: 85025; 86850; 86900; 86901

== ENCOUNTER → 2023-08-11 | Outpatient (CLI) | payer BC, OTHER ==
--- NOTE | 2023-08-11 09:39 | XR ---
EXAMINATION TYPE: XR KUB DATE OF EXAM: 08/11/2023 COMPARISON: NONE HISTORY: Pelvic calcifications noted. TECHNIQUE: One view abdominal series FINDINGS: The osseous structures are intact. The bowel gas pattern is nonspecific. Retained fecal debris throu ghout the colon. Lung bases are clear. IMPRESSION: 1. Nonspecific abdomen.
== END | disposition home or self-care (01) ==
LOC: RADXRMAIN 09:21
PROVIDERS: ATTEND Urology
DX: N20.0 Calculus of kidney (principal)
CPT/HCPCS: 74018